=== PATIENT | male | born 1950 | race Caucasian/White ===

== ENCOUNTER 2016-05-14 01:42 | Inpatient (IN) | payer BC ==
[2016-05-14] VITALS (7 sets, daily range): BP systolic 123–143; BP diastolic 68–83; PULSE 75–92; TEMP 98.1–99.3
[~2016-05-14] VITALS: Ht 152.4 cm; Wt 69.5 kg
[2016-05-14] MEDS ORDERED: PREDNISONE 5MG5 MG PO (01:54)
[2016-05-14] MEDS ORDERED: NEORAL25 MG PO (01:55)
[2016-05-14] MEDS ORDERED: CALCITRIOL PO (01:55)
[2016-05-14 02:19] LABS: VENOUS BLOOD GAS BE -4.4 (-4-4); VENOUS BLOOD GAS SAO2 73.3 % (60-80)
[2016-05-14 02:20] LABS: VENOUS BLOOD GAS SITE VENIPUNCTURE
[2016-05-14 02:26] LABS: MEAN CELL VOLUME 101 fl (80.0-100.0); MEAN CORPUSCULAR HGB CONC 33 g/dl (33.0-37.0); MEAN PLATELET VOLUME 9.8 fl (7.4-10.4); PLATELET COUNT 163 K/mm3 (130-400); RED BLOOD COUNT 2.96 M/mm3 (4.20-5.60); REDCELL DISTRIBUTION WIDTH-CV 14.2 % (11.5-14.5)
[2016-05-14 02:30] LABS: ADD PATHOLOGY DIFF REVIEW NO; HEMOGLOBIN 9.8 g/dl (13.5-18.0); MEAN CORPUSCULAR HEMOGLOBIN 33 pg (27.0-31.0)
[2016-05-14 02:35] LABS: ADJUSTED CALCIUM 9.5 mg/dL (8.4-10.2); ALBUMIN 3.3 gm/dL (3.5-5.0); CALCIUM 8.9 mg/dL (8.4-10.2); CREATININE, serum 3.07 mg/dL (0.66-1.25); MAGNESIUM 1.6 mg/dL (1.6-2.3); PHOSPHOROUS 2.1 mg/dL (2.5-4.5); POTASSIUM 4.5 mmol/L (3.4-5.0); TOTAL PROTEIN 6.7 gm/dL (6.4-8.2)
[2016-05-14 02:40] LABS: BAND 57 % (0-10); BASOPHIL 1 % (0-2); EOSINOPHIL 1 % (0-4); NEUTROPHILS 23 % (42.0-75.2); PLATELET ESTIMATE NORMAL (NORMAL); TOTAL CELLS COUNTED 100
[2016-05-14 02:42] LABS: INFLUENZA B NEGATIVE
[2016-05-14 02:46] LABS: TROPONIN-I 0.019 ng/mL (0.000-0.034)
[2016-05-14] MEDS ORDERED: IMURAN 50MG TAB50 MG PO (03:13)
[2016-05-14] MEDS ORDERED: NORVASC 5MG5 MG/TAB PO (03:14)
[2016-05-14] MEDS ORDERED: COREG12.5 MG PO (03:14)
[2016-05-14] MEDS ORDERED: VITAMIN D1000 IU PO (03:15)
[2016-05-14] MEDS ORDERED: LIPITOR 40MG TA40 MG PO (03:15)
[2016-05-14] MEDS ORDERED: CYCLOSPORINE50 MG PO ×2 (04:35→04:37)
[2016-05-14 08:59] LABS: PH 5 (5-8); SQUAMOUS EPITHELIAL None Seen /hpf; URINE APPEARANCE Clear; URINE BACTERIA Rare /hpf; URINE BILIRUBIN Negative (NEGATIVE); URINE BLOOD 1+ (NEGATIVE); URINE COLOR Yellow; URINE GLUCOSE Negative (NEGATIVE); URINE KETONE Negative (NEGATIVE); URINE RBC None Seen /hpf; URINE UROBILINOGEN Negative (NEGATIVE); URINE WBC 0-2 /hpf
[2016-05-15 03:44] VITALS: BP 128/37; PULSE 88; TEMP 98.4
[2016-05-15 07:31] VITALS: BP 122/80; PULSE 112; TEMP 100.1
[2016-05-15 10:35] VITALS: BP 106/80; PULSE 85
[2016-05-15 11:10] VITALS: BP 125/67; PULSE 85; TEMP 97.5
[2016-05-15 16:22] VITALS: BP 122/76; PULSE 91; TEMP 98.7
[2016-05-15 20:35] VITALS: BP 122/84; PULSE 88; TEMP 99.1
[2016-05-16] VITALS (8 sets, daily range): BP systolic 118–141; BP diastolic 68–87; PULSE 78–106; TEMP 98–98.7
[2016-05-16 08:42] LABS: CREATININE, serum 3.1 mg/dL (0.66-1.25); MAGNESIUM 1.9 mg/dL (1.6-2.3); POTASSIUM 4.7 mmol/L (3.4-5.0)
[2016-05-16 13:01] LABS: INR 1.1 (0.8-3.0); PROTHROMBIN TIME 12.5 SECONDS (9.7-12.8)
[2016-05-17 00:39] VITALS: BP 110/82; PULSE 64; TEMP 97.9
[2016-05-17 07:41] LABS: CALCIUM 9.1 mg/dL (8.4-10.2); CREATININE, serum 3.12 mg/dL (0.66-1.25); POTASSIUM 4.5 mmol/L (3.4-5.0)
[2016-05-17 09:18] VITALS: BP 118/84; PULSE 100; TEMP 98.3
[2016-05-17 11:12] VITALS: BP 106/71; PULSE 79; TEMP 98
[2016-05-17 12:11] VITALS: BP 115/78; PULSE 104; TEMP 98
[2016-05-17 16:33] VITALS: BP 123/78; PULSE 74; TEMP 98.1
[2016-05-17 19:25] VITALS: BP 134/84; PULSE 74; TEMP 97.5
[2016-05-18] VITALS (7 sets, daily range): BP systolic 118–148; BP diastolic 74–87; PULSE 71–84; TEMP 97.5–98.4
[2016-05-18 07:38] LABS: INR 1.1 (0.8-3.0); PROTHROMBIN TIME 11.8 SECONDS (9.7-12.8)
[2016-05-18 07:48] LABS: CALCIUM 9.2 mg/dL (8.4-10.2); CREATININE, serum 3.17 mg/dL (0.66-1.25); MAGNESIUM 2.1 mg/dL (1.6-2.3); POTASSIUM 5.5 mmol/L (3.4-5.0)
[2016-05-19 03:46] VITALS: BP 115/72; PULSE 80; TEMP 97.6
[2016-05-19 07:27] LABS: INR 1.2 (0.8-3.0); PROTHROMBIN TIME 13.5 SECONDS (9.7-12.8)
[2016-05-19 07:35] LABS: CALCIUM 8.8 mg/dL (8.4-10.2); CREATININE, serum 3.05 mg/dL (0.66-1.25); MAGNESIUM 2.1 mg/dL (1.6-2.3); POTASSIUM 4.1 mmol/L (3.4-5.0)
[2016-05-19 07:51] VITALS: BP 144/79; PULSE 77; TEMP 98.2
[2016-05-19 12:10] VITALS: BP 125/78; PULSE 80; TEMP 98
[2016-05-19 16:33] VITALS: BP 147/78; PULSE 71; TEMP 97.7
[2016-05-19 20:36] VITALS: BP 131/75; PULSE 67; TEMP 98.1
[2016-05-19 23:19] VITALS: BP 122/70; PULSE 70; TEMP 97.7
[2016-05-20 04:31] VITALS: BP 150/79; PULSE 74; TEMP 98.7
[2016-05-20 07:57] VITALS: BP 154/89; PULSE 71
[2016-05-20 08:33] LABS: INR 1.8 (0.8-3.0); PROTHROMBIN TIME 20.1 SECONDS (9.7-12.8)
[2016-05-20 08:46] LABS: CALCIUM 8.4 mg/dL (8.4-10.2); CREATININE, serum 3.11 mg/dL (0.66-1.25); MAGNESIUM 2.2 mg/dL (1.6-2.3); POTASSIUM 4.5 mmol/L (3.4-5.0)
[2016-05-20 11:48] LABS: MEAN CELL VOLUME 103 fl (80.0-100.0); MEAN CORPUSCULAR HGB CONC 32 g/dl (33.0-37.0); MEAN PLATELET VOLUME 10.3 fl (7.4-10.4); PLATELET COUNT 272 K/mm3 (130-400); RED BLOOD COUNT 2.56 M/mm3 (4.20-5.60); REDCELL DISTRIBUTION WIDTH-CV 14.4 % (11.5-14.5); WHITE BLOOD COUNT 6.3 K/mm3 (4.8-10.8)
[2016-05-20 11:54] LABS: HEMATOCRIT 26.4 % (42.0-52.0); HEMOGLOBIN 8.5 g/dl (13.5-18.0); MEAN CORPUSCULAR HEMOGLOBIN 33 pg (27.0-31.0)
[2016-05-20 11:55] LABS: ADD PATHOLOGY DIFF REVIEW NO
[2016-05-20 12:04] VITALS: BP 129/72; PULSE 70
[2016-05-20 12:57] LABS: BAND 2 % (0-10); NEUTROPHILS 92 % (42.0-75.2); TOTAL CELLS COUNTED 100
[2016-05-20 12:59] LABS: PLATELET ESTIMATE NORMAL (NORMAL)
[2016-05-20 15:39] VITALS: BP 116/73; PULSE 74; TEMP 97.8
[2016-05-20 20:12] VITALS: BP 103/77; PULSE 72; TEMP 97.7
[2016-05-21] VITALS (899 sets, daily range): BP systolic 66–134; BP diastolic 46–84; PULSE 72–87; TEMP 97–99.1; O2SAT 73–100
[2016-05-21 07:48] LABS: MEAN CELL VOLUME 104 fl (80.0-100.0); MEAN CORPUSCULAR HGB CONC 32 g/dl (33.0-37.0); MEAN PLATELET VOLUME 10.3 fl (7.4-10.4); PLATELET COUNT 210 K/mm3 (130-400); RED BLOOD COUNT 1.63 M/mm3 (4.20-5.60); REDCELL DISTRIBUTION WIDTH-CV 14.6 % (11.5-14.5); WHITE BLOOD COUNT 7.4 K/mm3 (4.8-10.8)
[2016-05-21 07:53] LABS: PROTHROMBIN TIME 44.6 SECONDS (9.7-12.8)
[2016-05-21 08:06] LABS: MEAN CORPUSCULAR HEMOGLOBIN 33 pg (27.0-31.0)
[2016-05-21 08:09] LABS: CALCIUM 7.2 mg/dL (8.4-10.2); MAGNESIUM 2.2 mg/dL (1.6-2.3); POTASSIUM 5.4 mmol/L (3.4-5.0)
[2016-05-21 08:12] LABS: HEMOGLOBIN 5.4 g/dl (13.5-18.0)
[2016-05-21 08:13] LABS: ADD PATHOLOGY DIFF REVIEW NO
[2016-05-21 08:15] LABS: INR 3.9 (0.8-3.0)
[2016-05-21 09:13] LABS: CREATININE, serum 4.02 mg/dL (0.66-1.25)
[2016-05-21 11:11] LABS: BAND 18 % (0-10); NEUTROPHILS 70 % (42.0-75.2); PLATELET ESTIMATE NORMAL (NORMAL); TOTAL CELLS COUNTED 100
[2016-05-21 12:40] LABS: PH 5 (5-8); SQUAMOUS EPITHELIAL 0-2 /hpf; URINE APPEARANCE Hazy; URINE BACTERIA None Seen /hpf; URINE BILIRUBIN Negative (NEGATIVE); URINE BLOOD Negative (NEGATIVE); URINE COLOR Yellow; URINE GLUCOSE 1+ (NEGATIVE); URINE KETONE Negative (NEGATIVE); URINE RBC 0-2 /hpf; URINE UROBILINOGEN Negative (NEGATIVE); URINE WBC 0-2 /hpf
[2016-05-21 15:51] LABS: HEMOGLOBIN 7.3 g/dl (13.5-18.0)
[2016-05-22] VITALS (1364 sets, daily range): BP systolic 101–147; BP diastolic 56–91; PULSE 73–83; TEMP 97.7–99.4; O2SAT 81–99
[2016-05-22 02:50] LABS: HEMATOCRIT 22.7 % (42.0-52.0); HEMOGLOBIN 7.4 g/dl (13.5-18.0)
[2016-05-22 05:32] LABS: MEAN CORPUSCULAR HGB CONC 33 g/dl (33.0-37.0); MEAN PLATELET VOLUME 10.2 fl (7.4-10.4); PLATELET COUNT 162 K/mm3 (130-400); RED BLOOD COUNT 2.36 M/mm3 (4.20-5.60); REDCELL DISTRIBUTION WIDTH-CV 18.4 % (11.5-14.5); WHITE BLOOD COUNT 11.4 K/mm3 (4.8-10.8)
[2016-05-22 05:34] LABS: INR 1.3 (0.8-3.0); PROTHROMBIN TIME 14.9 SECONDS (9.7-12.8)
[2016-05-22 05:37] LABS: PARTIAL THROMBOPLASTIN TIME 30.8 SECONDS (26.0-37.0)
[2016-05-22 05:38] LABS: ADJUSTED CALCIUM 8.3 mg/dL (8.4-10.2); ALBUMIN 2.5 gm/dL (3.5-5.0); BILIRUBIN,TOTAL 0.5 mg/dL (0.0-1.0); CALCIUM 7.1 mg/dL (8.4-10.2); POTASSIUM 5.6 mmol/L (3.4-5.0)
[2016-05-22 05:45] LABS: ADD PATHOLOGY DIFF REVIEW NO; HEMATOCRIT 22.4 % (42.0-52.0); HEMOGLOBIN 7.3 g/dl (13.5-18.0); MEAN CELL VOLUME 95 fl (80.0-100.0); MEAN CORPUSCULAR HEMOGLOBIN 31 pg (27.0-31.0)
[2016-05-22 05:47] LABS: CREATININE, serum 4.88 mg/dL (0.66-1.25)
[2016-05-22 06:03] LABS: BAND 10 % (0-10); NEUTROPHILS 80 % (42.0-75.2); TOTAL CELLS COUNTED 100
[2016-05-22 19:54] LABS: HEMATOCRIT 25.9 % (42.0-52.0); HEMOGLOBIN 8.7 g/dl (13.5-18.0)
[2016-05-23] VITALS (1279 sets, daily range): BP systolic 113–146; BP diastolic 70–90; PULSE 71–89; TEMP 98–98.5; O2SAT 78–100
[2016-05-23 00:43] LABS: HEMATOCRIT 25.8 % (42.0-52.0); HEMOGLOBIN 8.7 g/dl (13.5-18.0)
[2016-05-23 03:55] LABS: MEAN CELL VOLUME 92 fl (80.0-100.0); MEAN CORPUSCULAR HGB CONC 34 g/dl (33.0-37.0); MEAN PLATELET VOLUME 10.6 fl (7.4-10.4); PLATELET COUNT 117 K/mm3 (130-400); REDCELL DISTRIBUTION WIDTH-CV 17.1 % (11.5-14.5); WHITE BLOOD COUNT 11.7 K/mm3 (4.8-10.8)
[2016-05-23 03:57] LABS: ADD PATHOLOGY DIFF REVIEW NO; HEMATOCRIT 23.8 % (42.0-52.0); MEAN CORPUSCULAR HEMOGLOBIN 31 pg (27.0-31.0)
[2016-05-23 03:59] LABS: INR 1.5 (0.8-3.0); PROTHROMBIN TIME 16.5 SECONDS (9.7-12.8)
[2016-05-23 04:01] LABS: PARTIAL THROMBOPLASTIN TIME 35.2 SECONDS (26.0-37.0); PH 5 (5-8); SQUAMOUS EPITHELIAL 0-2 /hpf; URINE APPEARANCE Cloudy; URINE BACTERIA Rare /hpf; URINE BILIRUBIN Negative (NEGATIVE); URINE BLOOD 3+ (NEGATIVE); URINE COLOR Yellow; URINE GLUCOSE Negative (NEGATIVE); URINE KETONE Negative (NEGATIVE); URINE UROBILINOGEN Negative (NEGATIVE)
[2016-05-23 04:01] LABS: ADJUSTED CALCIUM 8.1 mg/dL (8.4-10.2); ALANINE AMINOTRANSFERASE 90 U/L (21-72); ALBUMIN 2.2 gm/dL (3.5-5.0); ALKALINE PHOSPHATASE 41 U/L (50-136); ANION GAP 12 mmol/L (7-16); BILIRUBIN,TOTAL 0.8 mg/dL (0.0-1.0); CALCIUM 6.7 mg/dL (8.4-10.2); CARBON DIOXIDE 22 mmol/L (22-30); CHLORIDE 97 mmol/L (98-107); GLUCOSE 309 mg/dL (74-106); POTASSIUM 4.4 mmol/L (3.4-5.0); SODIUM 131 mmol/L (137-145); TOTAL PROTEIN 4.7 gm/dL (6.4-8.2)
[2016-05-23 04:02] LABS: URINE RBC 20-50 /hpf; URINE WBC 0-2 /hpf
[2016-05-23 04:19] LABS: BLOOD UREA NITROGEN 134 mg/dL (9-20); CREATININE, serum 4.99 mg/dL (0.66-1.25); TROPONIN-I < 0.012 ng/mL (0.000-0.034)
[2016-05-23 05:11] LABS: BAND 9 % (0-10); NEUTROPHILS 88 % (42.0-75.2); TOTAL CELLS COUNTED 100
[2016-05-23 12:52] LABS: HEMATOCRIT 24.8 % (42.0-52.0); HEMOGLOBIN 8.6 g/dl (13.5-18.0)
[2016-05-23 12:53] LABS: RETIC % 0.9 % (0.5-3.52)
[2016-05-23 19:04] LABS: HEMATOCRIT 24.8 % (42.0-52.0); HEMOGLOBIN 8.6 g/dl (13.5-18.0)
[2016-05-24] VITALS (672 sets, daily range): BP systolic 152–164; BP diastolic 84–99; PULSE 75–81; TEMP 97.9–98.4; O2SAT 57–100
[2016-05-24 06:54] LABS: HEMATOCRIT 23.7 % (42.0-52.0); HEMOGLOBIN 8.1 g/dl (13.5-18.0)
[2016-05-24 06:58] LABS: INR 1.7 (0.8-3.0); PROTHROMBIN TIME 19.2 SECONDS (9.7-12.8)
[2016-05-24 09:46] LABS: ALBUMIN 2.5 gm/dL (3.5-5.0); BILIRUBIN,TOTAL 0.8 mg/dL (0.0-1.0); CALCIUM 7.8 mg/dL (8.4-10.2); MAGNESIUM 2.2 mg/dL (1.6-2.3); POTASSIUM 4.1 mmol/L (3.4-5.0); TOTAL PROTEIN 5.1 gm/dL (6.4-8.2)
[2016-05-24 10:00] LABS: CREATININE, serum 5.28 mg/dL (0.66-1.25)
[2016-11-04] MEDS ORDERED: COREG 3.123.125 MG/T PO (13:02)
[2016-11-04] MEDS ORDERED: FOLIC ACID 40400 MCG PO (13:04)
[2016-11-04] MEDS ORDERED: NORVASC 5MG5 MG/TAB PO (13:04)
[2016-11-04] MEDS ORDERED: PROCRIT 1010 MU/VIAL IV (13:05)
[2016-11-04] MEDS ORDERED: B-121000 MCG PO (13:05)
== END 2016-05-24 16:08 | disposition short-term general hospital (02) | DRG 189 ==
LOC: COL.ER 01:42 → MEDICAL 02:59 → ICU 05-21 08:45
PROVIDERS: Anesthesiology Critical Care Medicine; Emergency Medicine; Family Medicine; Internal Medicine; Internal Medicine Cardiovascular Disease; Internal Medicine Nephrology; Nurse Practitioner Family
PROC: 5A2204Z Restoration of Cardiac Rhythm, Single (ICD-10-PCS; principal; 2016-05-16)
DX: J96.01 Acute respiratory failure with hypoxia (principal); R57.8 Other shock; N17.0 Acute kidney failure with tubular necrosis; Z94.0 Kidney transplant status; K56.7 Ileus, unspecified; E87.2 Acidosis; D62 Acute posthemorrhagic anemia; J20.9 Acute bronchitis, unspecified; I12.9 Hypertensive chronic kidney disease with stage 1 through stage 4 chronic kidney disease, or unspecified chronic kidney disease; N18.9 Chronic kidney disease, unspecified; D63.1 Anemia in chronic kidney disease; I48.0 Paroxysmal atrial fibrillation; J01.00 Acute maxillary sinusitis, unspecified; J01.10 Acute frontal sinusitis, unspecified; R58 Hemorrhage, not elsewhere classified
CPT/HCPCS: 99223-AI; 99232-AI; 99233-AI; 99239; C1751; J0456; J0696; J0881; J1170; J1450; J1644; J1650; J1940; J1956; J2405; J2704; J2765; J2920; J2930; J3010; J3430; J7030; J7040; J7050; J7070; J7500; J7512; J7515; P9016

== ENCOUNTER → 2016-07-17 | Outpatient (CLI) | payer BC ==
[~2016-07-17] MED LIST: B-121000 MCG PO; CALCITRIOL PO; CORDARONE200 MG/TAB PO; COREG 3.123.125 MG/T PO; COREG12.5 MG PO; CYCLOSPORINE50 MG PO; FOLIC ACID 40400 MCG PO; IMURAN 50MG TAB50 MG PO; KEPPRA250 MG PO; LIPITOR 40MG TA40 MG PO; NEORAL25 MG PO; NORVASC 5MG5 MG/TAB PO; PREDNISONE 5MG5 MG PO; PROCRIT 1010 MU/VIAL IV; VITAMIN D1000 IU PO; [UNRECOGNIZED DRUG - OTHER] PO
== END ==
LOC: COL.VAS 12:28
DX: N18.6 End stage renal disease (principal)
CPT/HCPCS: G0365

== ENCOUNTER 2016-07-30 08:38 | Emergency (ER) | payer BC ==
[~2016-07-30] VITALS: Ht 147.3 cm; Wt 56.4 kg
[~2016-07-30 08:38] MED LIST changes: -B-121000 MCG PO; -CORDARONE200 MG/TAB PO; -COREG 3.123.125 MG/T PO; -FOLIC ACID 40400 MCG PO; -KEPPRA250 MG PO; -PROCRIT 1010 MU/VIAL IV; -[UNRECOGNIZED DRUG - OTHER] PO
[2016-07-30 08:43] VITALS: BP 148/85; TEMP 98.1
[2016-07-30] MEDS ORDERED: [UNRECOGNIZED DRUG - OTHER] PO (08:47)
[2016-07-30] MEDS ORDERED: PREDNISONE 5MG5 MG PO (08:48)
[2016-07-30] MEDS ORDERED: CORDARONE200 MG/TAB PO (08:48)
[2016-07-30] MEDS ORDERED: KEPPRA250 MG PO (08:49)
[2016-07-30 09:33] LABS: BASO % 0.3 % (0.0-2.0); EOS # 0.1 (0.0-0.7); EOS % 1.3 % (0-4.0); GRAN # 3.5 (1.4-6.5); GRAN % 46.9 % (42.2-75.2); LYMPH # 2.9 (1.2-3.4); LYMPH % 38.9 % (20.0-51.0); MEAN CELL VOLUME 104 fl (80.0-100.0); MEAN CORPUSCULAR HGB CONC 32 g/dl (33.0-37.0); MEAN PLATELET VOLUME 9.4 fl (7.4-10.4); MONO # 0.9 (0.1-0.6); MONO % 12.2 % (1.7-9.3); PLATELET COUNT 164 K/mm3 (130-400); RED BLOOD COUNT 2.93 M/mm3 (4.20-5.60); REDCELL DISTRIBUTION WIDTH-CV 20.6 % (11.5-14.5); WHITE BLOOD COUNT 7.5 K/mm3 (4.8-10.8)
[2016-07-30 09:46] LABS: HEMATOCRIT 30.4 % (42.0-52.0); HEMOGLOBIN 9.8 g/dl (13.5-18.0); MEAN CORPUSCULAR HEMOGLOBIN 33 pg (27.0-31.0)
[2016-07-30 09:49] LABS: ADJUSTED CALCIUM 9.5 mg/dL (8.4-10.2); ALBUMIN 3.2 gm/dL (3.5-5.0); BILIRUBIN,TOTAL 0.9 mg/dL (0.0-1.0); C-REACTIVE PROTEIN 2.9 mg/dL (0.0-0.9); CALCIUM 8.9 mg/dL (8.4-10.2); POTASSIUM 3.9 mmol/L (3.4-5.0); TOTAL PROTEIN 6.4 gm/dL (6.4-8.2)
[2016-07-30 09:51] LABS: CREATININE, serum 6.43 mg/dL (0.66-1.25)
[2016-07-30 10:57] VITALS: PULSE 72
[2016-11-04] MEDS ORDERED: COREG 3.123.125 MG/T PO (13:02)
[2016-11-04] MEDS ORDERED: NORVASC 5MG5 MG/TAB PO (13:04)
[2016-11-04] MEDS ORDERED: FOLIC ACID 40400 MCG PO (13:04)
[2016-11-04] MEDS ORDERED: B-121000 MCG PO (13:05)
[2016-11-04] MEDS ORDERED: PROCRIT 1010 MU/VIAL IV (13:05)
== END 2016-07-30 10:58 | disposition home or self-care (01) ==
LOC: COL.ER 08:38
PROVIDERS: Emergency Medicine
DX: T82.868A Thrombosis due to vascular prosthetic devices, implants and grafts, initial encounter (principal); I82.C11 Acute embolism and thrombosis of right internal jugular vein; Z94.0 Kidney transplant status; Z99.2 Dependence on renal dialysis; N18.6 End stage renal disease
CPT/HCPCS: Q9967

== ENCOUNTER → 2016-11-08 | Outpatient (CLI) | payer BC ==
[~2016-11-08] VITALS: Ht 147.3 cm; Wt 56.8 kg
[~2016-11-08] MED LIST changes: +B-121000 MCG PO; +CORDARONE200 MG/TAB PO; +COREG 3.123.125 MG/T PO; +FOLIC ACID 40400 MCG PO; +KEPPRA250 MG PO; +PROCRIT 1010 MU/VIAL IV; +[UNRECOGNIZED DRUG - OTHER] PO
[2016-11-08 12:14] VITALS: BP 119/64; PULSE 68
== END ==
LOC: COL.RAD 11-05 13:30
DX: R19.09 Other intra-abdominal and pelvic swelling, mass and lump (principal); N26.1 Atrophy of kidney (terminal); M81.8 Other osteoporosis without current pathological fracture; K86.2 Cyst of pancreas; N32.89 Other specified disorders of bladder; K57.30 Diverticulosis of large intestine without perforation or abscess without bleeding; K42.9 Umbilical hernia without obstruction or gangrene; Z94.0 Kidney transplant status

== ENCOUNTER → 2016-12-16 | Outpatient (CLI) | payer BC ==
[~2016-12-16] VITALS: Ht 149.9 cm; Wt 56.8 kg
[~2016-12-16] MED LIST changes: +RENVELA800 MG PO; -VITAMIN D1000 IU PO; +VITAMIN D31000 I1 PO
[2016-12-16 08:16] VITALS: BP 153/86; PULSE 65
[2016-12-16 08:45] VITALS: BP 145/82; PULSE 57
[2016-12-16 09:18] VITALS: BP 128/68; PULSE 56
== END ==
LOC: COL.RAD 07:56
DX: Z45.2 Encounter for adjustment and management of vascular access device (principal)

== ENCOUNTER 2018-03-01 07:18 | Inpatient (IN) | payer BC, MEDICARE ==
[~2018-03-01] VITALS: Ht 149.9 cm; Wt 52.7 kg
[2018-03-01 07:56] LABS: BASO % 0.4 % (0.0-2.0); EOS # 0.1 (0.0-0.7); EOS % 1.4 % (0-4.0); GRAN # 4.3 (1.4-6.5); HEMOGLOBIN 10.9 g/dl (13.5-18.0); LYMPH # 1.6 (1.2-3.4); LYMPH % 22.8 % (20.0-51.0); MEAN CELL VOLUME 104 fl (80.0-100.0); MEAN CORPUSCULAR HEMOGLOBIN 33 pg (27.0-31.0); MEAN CORPUSCULAR HGB CONC 32 g/dl (33.0-37.0); MEAN PLATELET VOLUME 9.6 fl (7.4-10.4); MONO # 1.1 (0.1-0.6); PLATELET COUNT 157 K/mm3 (130-400); RED BLOOD COUNT 3.29 M/mm3 (4.20-5.60); REDCELL DISTRIBUTION WIDTH-CV 13.9 % (11.5-14.5)
[2018-03-01 07:57] LABS: INR 0.9 (0.8-3.0); PROTHROMBIN TIME 10.3 SECONDS (9.7-12.8)
[2018-03-01 08:00] LABS: HEMATOCRIT 34.1 % (42.0-52.0)
[2018-03-01 08:07] LABS: ALBUMIN 3.8 gm/dL (3.5-5.0); BILIRUBIN,TOTAL 0.6 mg/dL (0.0-1.0); CALCIUM 9.5 mg/dL (8.4-10.2); POTASSIUM 4.8 mmol/L (3.4-5.0)
[2018-03-01 08:20] LABS: CREATININE, serum 4.66 mg/dL (0.66-1.25)
[2018-03-01] MEDS ORDERED: PHOS LO PO (08:30)
[2018-03-01] MEDS ORDERED: LIPITOR 10MG10 MG PO (08:31)
[2018-03-01] MEDS ORDERED: LASIX 80MG TABL80 MG PO (08:33)
[2018-03-01 10:57] VITALS: BP 150/64; PULSE 63; TEMP 98.6
[2018-03-01 15:18] VITALS: BP 183/76; PULSE 71; TEMP 97.4
[2018-03-01 15:37] LABS: TSH w REFLEX 5.73 uIU/mL (0.465-4.680)
[2018-03-01 19:38] VITALS: BP 127/57; PULSE 60; TEMP 99.3
[2018-03-02 00:02] VITALS: BP 140/66; PULSE 66; TEMP 98.3
[2018-03-02 05:05] VITALS: BP 131/60; PULSE 64; TEMP 98.7
[2018-03-02 06:25] LABS: BASO % 0.6 % (0.0-2.0); EOS # 0.1 (0.0-0.7); EOS % 1.8 % (0-4.0); GRAN % 60.4 % (42.2-75.2); LYMPH # 1.6 (1.2-3.4); LYMPH % 23.8 % (20.0-51.0); MEAN CELL VOLUME 106 fl (80.0-100.0); MEAN CORPUSCULAR HGB CONC 31 g/dl (33.0-37.0); MONO # 0.9 (0.1-0.6); MONO % 13.1 % (1.7-9.3); PLATELET COUNT 143 K/mm3 (130-400); RED BLOOD COUNT 2.87 M/mm3 (4.20-5.60); REDCELL DISTRIBUTION WIDTH-CV 14.2 % (11.5-14.5)
[2018-03-02 06:30] LABS: ALBUMIN 3.1 gm/dL (3.5-5.0); HEMATOCRIT 30.4 % (42.0-52.0); HEMOGLOBIN 9.3 g/dl (13.5-18.0); MEAN CORPUSCULAR HEMOGLOBIN 32 pg (27.0-31.0); PHOSPHOROUS 3.7 mg/dL (2.5-4.5)
[2018-03-02 06:34] LABS: CREATININE, serum 6.66 mg/dL (0.66-1.25); POTASSIUM 5.9 mmol/L (3.4-5.0)
[2018-03-02 07:34] VITALS: BP 123/54; PULSE 64; TEMP 99
[2018-03-02 15:01] VITALS: BP 129/61; PULSE 66; TEMP 98.5
[2018-03-02 19:40] VITALS: BP 112/58; PULSE 57; TEMP 98.8
[2018-03-03] VITALS (14 sets, daily range): BP systolic 114–142; BP diastolic 51–77; PULSE 57–68; TEMP 98.4–99.5
[2018-03-03 07:08] LABS: BASO % 0.4 % (0.0-2.0); EOS # 0.1 (0.0-0.7); EOS % 2.4 % (0-4.0); GRAN # 3.4 (1.4-6.5); GRAN % 61.4 % (42.2-75.2); LYMPH # 1.3 (1.2-3.4); LYMPH % 22.9 % (20.0-51.0); MEAN CELL VOLUME 105 fl (80.0-100.0); MEAN CORPUSCULAR HGB CONC 31 g/dl (33.0-37.0); MEAN PLATELET VOLUME 9.9 fl (7.4-10.4); MONO # 0.7 (0.1-0.6); MONO % 12.7 % (1.7-9.3); PLATELET COUNT 149 K/mm3 (130-400); RED BLOOD COUNT 2.78 M/mm3 (4.20-5.60); REDCELL DISTRIBUTION WIDTH-CV 13.7 % (11.5-14.5)
[2018-03-03 07:10] LABS: HEMATOCRIT 29.3 % (42.0-52.0); HEMOGLOBIN 9.2 g/dl (13.5-18.0); MEAN CORPUSCULAR HEMOGLOBIN 33 pg (27.0-31.0)
[2018-03-03 07:20] LABS: ALBUMIN 3.2 gm/dL (3.5-5.0); CALCIUM 8.8 mg/dL (8.4-10.2); PHOSPHOROUS 5.1 mg/dL (2.5-4.5)
[2018-03-03 07:22] LABS: CREATININE, serum 4.98 mg/dL (0.66-1.25)
[2018-03-04 00:22] VITALS: BP 122/54; PULSE 59; TEMP 98.6
[2018-03-04 03:04] VITALS: BP 115/57; PULSE 58; TEMP 98.8
[2018-03-04 07:14] VITALS: BP 121/58; PULSE 56; TEMP 98.2
[2018-03-04 08:02] LABS: BASO % 0.2 % (0.0-2.0); EOS # 0.1 (0.0-0.7); EOS % 2.5 % (0-4.0); GRAN # 2.9 (1.4-6.5); GRAN % 55.6 % (42.2-75.2); LYMPH # 1.4 (1.2-3.4); LYMPH % 27.9 % (20.0-51.0); MEAN CELL VOLUME 103 fl (80.0-100.0); MEAN CORPUSCULAR HGB CONC 32 g/dl (33.0-37.0); MEAN PLATELET VOLUME 10.1 fl (7.4-10.4); MONO # 0.7 (0.1-0.6); MONO % 13.6 % (1.7-9.3); PLATELET COUNT 165 K/mm3 (130-400); RED BLOOD COUNT 2.64 M/mm3 (4.20-5.60); REDCELL DISTRIBUTION WIDTH-CV 13.8 % (11.5-14.5)
[2018-03-04 08:07] LABS: HEMATOCRIT 27.3 % (42.0-52.0); HEMOGLOBIN 8.8 g/dl (13.5-18.0); MEAN CORPUSCULAR HEMOGLOBIN 33 pg (27.0-31.0)
[2018-03-04 08:31] LABS: ALBUMIN 3.1 gm/dL (3.5-5.0); CALCIUM 8.8 mg/dL (8.4-10.2); PHOSPHOROUS 3.9 mg/dL (2.5-4.5); POTASSIUM 4.3 mmol/L (3.4-5.0)
[2018-03-04 08:32] LABS: CREATININE, serum 4.72 mg/dL (0.66-1.25)
[2018-03-04 11:06] VITALS: BP 106/54; PULSE 52; TEMP 98
[2018-03-04] MEDS ORDERED: FLOMAX 0.40.4 MG/CAP PO (11:37)
[2018-03-04] MEDS ORDERED: NEORAL100 MG PO (11:40)
[2018-03-04] MEDS ORDERED: NORCO 325 MG-51 TAB PO (12:32)
== END 2018-03-04 12:53 | disposition home or self-care (01) | DRG 604 ==
LOC: COL.ER 07:18 → MEDICAL 08:40
PROVIDERS: Emergency Medicine; Internal Medicine Nephrology
PROC: 0S9C3ZZ Drainage of Right Knee Joint, Percutaneous Approach (ICD-10-PCS; 2018-03-01)
PROC: 5A1D70Z Performance of Urinary Filtration, Intermittent, Less than 6 Hours Per Day (ICD-10-PCS; principal; 2018-03-02)
PROC: 5A1D70Z Performance of Urinary Filtration, Intermittent, Less than 6 Hours Per Day (ICD-10-PCS; 2018-03-03)
DX: S70.01XA Contusion of right hip, initial encounter (principal); N18.6 End stage renal disease; Q61.3 Polycystic kidney, unspecified; Z94.0 Kidney transplant status; M25.061 Hemarthrosis, right knee; S80.01XA Contusion of right knee, initial encounter; W18.30XA Fall on same level, unspecified, initial encounter; M25.461 Effusion, right knee; Z99.2 Dependence on renal dialysis; E87.5 Hyperkalemia; N13.9 Obstructive and reflux uropathy, unspecified; I48.91 Unspecified atrial fibrillation; Z79.01 Long term (current) use of anticoagulants
CPT/HCPCS: J1644; J2270; J2405; J7512; J7515

== ENCOUNTER 2018-10-11 10:48 | Emergency (ER) | payer BC, MEDICARE ==
[~2018-10-11] VITALS: Ht 147.3 cm; Wt 53.6 kg
[~2018-10-11 10:48] MED LIST changes: +FLOMAX 0.40.4 MG/CAP PO; +LASIX 80MG TABL80 MG PO; +LIPITOR 10MG10 MG PO; +NEORAL100 MG PO; +NORCO 325 MG-51 TAB PO; +PHOS LO PO
[2018-10-11 10:59] VITALS: TEMP 98
[2018-10-11 11:26] LABS: BASO # 0.1 (0.0-0.2); BASO % 0.5 % (0.0-2.0); EOS # 0.1 (0.0-0.7); EOS % 1.2 % (0-4.0); GRAN # 7.3 (1.4-6.5); GRAN % 79.1 % (42.2-75.2); LYMPH # 1.2 (1.2-3.4); LYMPH % 12.4 % (20.0-51.0); MEAN CELL VOLUME 103 fl (80.0-100.0); MEAN CORPUSCULAR HGB CONC 31 g/dl (33.0-37.0); MEAN PLATELET VOLUME 9.2 fl (7.4-10.4); MONO # 0.5 (0.1-0.6); MONO % 5.7 % (1.7-9.3); PLATELET COUNT 182 K/mm3 (130-400); RED BLOOD COUNT 2.93 M/mm3 (4.20-5.60); REDCELL DISTRIBUTION WIDTH-CV 15.2 % (11.5-14.5)
[2018-10-11 11:27] LABS: HEMATOCRIT 30.1 % (42.0-52.0); HEMOGLOBIN 9.4 g/dl (13.5-18.0); MEAN CORPUSCULAR HEMOGLOBIN 32 pg (27.0-31.0)
[2018-10-11] MEDS ORDERED: RENVELA800 MG PO (11:28)
[2018-10-11] MEDS ORDERED: NEORAL25 MG PO (11:32)
[2018-10-11] MEDS ORDERED: PROCRIT 1010 MU/VIAL SQ (11:36)
[2018-10-11 11:37] LABS: ALBUMIN 3.3 gm/dL (3.5-5.0); BILIRUBIN,TOTAL 0.6 mg/dL (0.0-1.0); CALCIUM 8.7 mg/dL (8.4-10.2); CREATININE, serum 5.57 (0.66-1.25); POTASSIUM 4.5 mmol/L (3.4-5.0); TOTAL PROTEIN 6.5 gm/dL (6.4-8.2)
[2018-10-11] MEDS ORDERED: CALCITRIOL PO (11:38)
[2018-10-11] MEDS ORDERED: NORCO 325 MG-51 TAB PO (12:12)
[2018-10-11 12:40] VITALS: BP 150/80; PULSE 60
== END 2018-10-11 13:11 | disposition home or self-care (01) ==
LOC: COL.ER 10:48
PROVIDERS: Family Medicine
DX: S70.01XA Contusion of right hip, initial encounter (principal); S41.111A Laceration without foreign body of right upper arm, initial encounter; E11.9 Type 2 diabetes mellitus without complications; Z23 Encounter for immunization; Z99.2 Dependence on renal dialysis; W01.0XXA Fall on same level from slipping, tripping and stumbling without subsequent striking against object, initial encounter

== ENCOUNTER 2018-10-16 15:06 | Inpatient (IN) | payer BC, MEDICARE ==
[~2018-10-16] VITALS: Ht 147.3 cm; Wt 50.6 kg
[~2018-10-16 15:06] MED LIST changes: +PROCRIT 1010 MU/VIAL SQ
[2018-10-16] MEDS ORDERED: ARANESP0.5 MG/ML IV (16:33)
[2018-10-16] MEDS ORDERED: ULTRAM 50MG TAB50 MG PO (16:37)
[2018-10-16 16:56] VITALS: BP 156/70; PULSE 64; TEMP 98.3
--- NOTE | 2018-10-16 20:01 | NUR ---
Pt arrived to floor on direct admit, initial assessments complete, orders received and entered into computer.
[2018-10-16 20:03] LABS: BASO % 0.4 % (0.0-2.0); EOS % 0.4 % (0-4.0); GRAN # 6.1 (1.4-6.5); GRAN % 76.4 % (42.2-75.2); MEAN CELL VOLUME 102 fl (80.0-100.0); MEAN CORPUSCULAR HGB CONC 32 g/dl (33.0-37.0); MEAN PLATELET VOLUME 9.8 fl (7.4-10.4); MONO # 0.8 (0.1-0.6); MONO % 10.2 % (1.7-9.3); PLATELET COUNT 210 K/mm3 (130-400); RED BLOOD COUNT 2.86 M/mm3 (4.20-5.60); REDCELL DISTRIBUTION WIDTH-CV 15.5 % (11.5-14.5)
[2018-10-16 20:04] LABS: HEMATOCRIT 29.3 % (42.0-52.0); HEMOGLOBIN 9.3 g/dl (13.5-18.0); MEAN CORPUSCULAR HEMOGLOBIN 33 pg (27.0-31.0)
[2018-10-16 20:05] LABS: INR 0.9 (0.8-3.0); PROTHROMBIN TIME 10.9 SECONDS (9.7-12.8)
[2018-10-16 20:18] LABS: ALBUMIN 3.4 gm/dL (3.5-5.0); BILIRUBIN,TOTAL 0.8 mg/dL (0.0-1.0); POTASSIUM 4.4 mmol/L (3.4-5.0); TOTAL PROTEIN 6.7 gm/dL (6.4-8.2); URIC ACID 3.8 mg/dL (3.5-8.5)
[2018-10-16 20:22] VITALS: BP 129/66; PULSE 72; TEMP 98.7
[2018-10-16 20:30] LABS: CREATININE, serum 5.57 (0.66-1.25)
--- NOTE | 2018-10-16 22:03 | NUR ---
Dr Olvera called for order for pt to have C-pap at night. Order received.
[2018-10-16 23:07] VITALS: BP 157/68; PULSE 67; TEMP 98.4
[2018-10-17] VITALS (18 sets, daily range): BP systolic 120–176; BP diastolic 66–87; PULSE 63–72; TEMP 98.4–99.2
--- NOTE | 2018-10-17 04:47 | NUR ---
Pt resting in bed without his c-pap on. States he couldn't get it to fit right after he had taken it off. States he is doing ok right now.
--- NOTE | 2018-10-17 08:00 | NUR ---
pt down for dialysis at this time via whelchair.
--- NOTE | 2018-10-17 12:23 | NUR ---
Pt back from dialysis at this time. Escorted via wheelchair by an mcnamara. Assessment completed and charted prior to dialysis. pt denies chest pain, dizziness, SOB, N/V. Pt on room air. Pt denies pain in general. Rt arm has wounds that are covered w/ dressing that is CDI. Will check later and rewrap dressing. No other needs at this time. will administer morning medications per MAR that were not given prior to dialysis.
--- NOTE | 2018-10-17 14:48 | NUR ---
Pt now c/o general pain, rating in 10/31. Administered tramadol PRN per MAY. Pt back from scheduled MRI. ECHO still pending, possibly done tomorrow or friday. No other needs at this time.
--- NOTE | 2018-10-17 19:30 | NUR ---
Report received from Lesly VILLEGAS. Pt resting in bed. No distress noted. Will continue to monitor.
--- NOTE | 2018-10-17 20:50 | NUR ---
Pt resting in bed. No distress noted. Pt denies pain at this time. HS meds given. Pt helped to stand at bedside to void in urinal. Urine is clear, paula. Repsirations even and unalbored. Lungs diminished. Abdomen soft, nontender. BS+. 2+ edema in BLE. Pulses equal. Pt A&O. No neuro deficits noted. AV fistula in RF. R arm with multiple abrasion covered with guaze dressings. Pt denies needs. Will continue to monitor.
--- NOTE | 2018-10-17 21:43 | NUR ---
Dr. Olvera called to have nurse take of patients bandages on his R arm to allow wounds to dry out. Dr. Olvera stated that this could be done tonight or in the AM depending on patient preference.
--- NOTE | 2018-10-17 21:50 | NUR ---
Pt stated that he wanted the dressing left on tonight, so the sheets don't run on the wounds. Will removed in the AM.
[2018-10-18 04:38] VITALS: BP 140/67; PULSE 65; TEMP 98.6
--- NOTE | 2018-10-18 06:30 | NUR ---
Pt resting in bed this AM. R arm dressings removed per MD order. Guaze moistened with Irrigation Saline in areas that were stuck, for comfort. Left open to air. Multiple lacerations and abrasions noted to R wrist/hand and R forearm. Wounds are held closed by steristrips. Steristrips left in place. Wounds on hand/wrist are foul smelling with purulent drainage. Pt denies pain.
--- NOTE | 2018-10-18 07:00 | NUR ---
Report given to Lesly VILLEGAS. Pt denies needs.
[2018-10-18 07:01] LABS: BASO % 0.3 % (0.0-2.0); EOS # 0.1 (0.0-0.7); EOS % 0.9 % (0-4.0); GRAN % 63.7 % (42.2-75.2); LYMPH # 1.7 (1.2-3.4); LYMPH % 21.6 % (20.0-51.0); MEAN CELL VOLUME 102 fl (80.0-100.0); MEAN CORPUSCULAR HGB CONC 31 g/dl (33.0-37.0); MEAN PLATELET VOLUME 9.7 fl (7.4-10.4); MONO % 12.6 % (1.7-9.3); PLATELET COUNT 214 K/mm3 (130-400); RED BLOOD COUNT 2.62 M/mm3 (4.20-5.60); REDCELL DISTRIBUTION WIDTH-CV 15.5 % (11.5-14.5)
[2018-10-18 07:11] LABS: HEMATOCRIT 26.6 % (42.0-52.0); HEMOGLOBIN 8.3 g/dl (13.5-18.0); MEAN CORPUSCULAR HEMOGLOBIN 32 pg (27.0-31.0)
[2018-10-18 07:12] VITALS: BP 135/66; PULSE 62; TEMP 98.4
[2018-10-18 07:16] LABS: CALCIUM 8.7 mg/dL (8.4-10.2); PHOSPHOROUS 3.8 mg/dL (2.5-4.5); POTASSIUM 4.3 mmol/L (3.4-5.0)
[2018-10-18 07:20] LABS: CREATININE, serum 4.84 (0.66-1.25)
--- NOTE | 2018-10-18 08:32 | NUR ---
Pt assessment complete and charted. Pt sitting in bed eating breakfast. Morning medications administered per MAY. Uneventful night per board attendant. Pt states he is doing well, denies dizziness, SOB, chest pain, N/V. C/O pain on right forearm and elbow. Multiple abrasions and open wounds on right forearm/hand/elbow. Bruising noted. Steri strips in place, some drainage noted. Per order, bandages were removed and needs to "air dry". Mehdi under arm for drainage. Pt denied pain medication, rating pain at 4/10. States rt hip feels ok just laying there but hurts more when he gets up to walk. PT/OT to work w/ patient today. Pt on room air. Rt arm fistula. No other needs at this time. Call light within reach.
[2018-10-18 11:01] VITALS: BP 107/55; PULSE 58; TEMP 98.6
--- NOTE | 2018-10-18 11:48 | NUR ---
The patient is to discharge to [facility] today, 10/18. Transportation is set up between [id number]. IESHA presented and explain the IM form. The pt understood and signed the form. IESHA informed the pt and pt's nurse of discharge time and all were in agreeance. IESHA to fax discharge orders to John at [facility]. There are no additional needs at this time.
[2018-10-18 12:01] LABS: TSH w REFLEX 3.92 uIU/mL (0.465-4.680)
--- NOTE | 2018-10-18 12:01 | NUR ---
IESHA met with the patient to discuss a discharge plan. The pt lives two miles outside of [place] with his mother. The pt has a walker that he uses occasionally and pt reports independence with ADLs. The pt's PCP is Dr. Johnston and pt receives his medications from [facility] with no difficulties. The pt does have advanced directives in the EMR. The pt plans to return home upon discharge. There are no additional needs at this time.
[2018-10-18 16:23] VITALS: BP 122/59; PULSE 59; TEMP 98.2
--- NOTE | 2018-10-18 18:03 | NUR ---
Pt has had uneventful day. No BM today, unable to obtain stool sample. Pt has rated pain 3-4/10, just received pain medication PRN per MAR. No other needs at this time. Call light within reach.
--- NOTE | 2018-10-18 19:00 | NUR ---
Report received from Lesly VILLEGAS.
--- NOTE | 2018-10-18 19:07 | NUR ---
Orth consult completed. Pt can be WBAT with walker. Follow up visit with ortho in about 6 weeks. No other needs at this time. Report given to BAKARI Ogden to resume cares.
[2018-10-18 19:24] VITALS: BP 113/55; PULSE 63; TEMP 98.5
--- NOTE | 2018-10-18 20:23 | NUR ---
Pt resting in bed. No distress noted. Pt denies pain. Respirations even and unlabored. Lungs clear. Abdomen soft, nontender. BS+. Pt helped up to side of bed to void in urinal. Urinary output is clear, yellow. Edema to BLE. RLE 1+ edema, LLE 2+ edema. RF AV fistula. Multiple lacerations and abrasions to R hand and elbow- secured with steristrips. Open to air. R hand lacerations have foul odor and yellow drainage. Pt states he is going to dialysis in the AM. No other needs noted. Will continue to monitor.
--- NOTE | 2018-10-18 21:46 | NUR ---
Pt called to report that R elbow wounds were causing him pain when they rub against the sheet. Pt requested the wounds be covered with guaze while sleeping.
[2018-10-18 23:36] VITALS: BP 130/61; PULSE 65; TEMP 98.8
[2018-10-19 03:20] VITALS: BP 130/64; PULSE 64; TEMP 98.9
--- NOTE | 2018-10-19 05:47 | NUR ---
Pt slept throughout the night without distress. Pt was up x2 to void in urinal. Pt has had minimal complaints. VSS. R elbow wound covered with guaze per pt request for comfort. Pt reports discomfort in the R arm.
--- NOTE | 2018-10-19 06:58 | NUR ---
Report given to Starla VILLEGAS. Pt resting. No distress noted. Pt denies needs.
[2018-10-19 07:09] LABS: MEAN CELL VOLUME 102 fl (80.0-100.0); MEAN CORPUSCULAR HGB CONC 31 g/dl (33.0-37.0); MEAN PLATELET VOLUME 9.6 fl (7.4-10.4); PLATELET COUNT 235 K/mm3 (130-400); RED BLOOD COUNT 2.63 M/mm3 (4.20-5.60); REDCELL DISTRIBUTION WIDTH-CV 15.4 % (11.5-14.5)
[2018-10-19 07:19] LABS: ALBUMIN 2.8 gm/dL (3.5-5.0); CALCIUM 8.6 mg/dL (8.4-10.2); CREATININE, serum 7.1 (0.66-1.25); PHOSPHOROUS 4.2 mg/dL (2.5-4.5); POTASSIUM 4.1 mmol/L (3.4-5.0)
[2018-10-19 07:21] VITALS: BP 139/67; PULSE 71; TEMP 98.8
[2018-10-19 07:24] LABS: HEMATOCRIT 26.8 % (42.0-52.0); HEMOGLOBIN 8.3 g/dl (13.5-18.0); MEAN CORPUSCULAR HEMOGLOBIN 32 pg (27.0-31.0)
[2018-10-19 09:09] LABS: BAND 2 % (0-10); EOSINOPHIL 3 % (0-4); LYMPHOCYTE 20 % (20.0-51.0); NEUTROPHILS 68 % (42.0-75.2); PLATELET ESTIMATE NORMAL (NORMAL)
[2018-10-19 09:10] LABS: ANISOCYTOSIS 1+; HYPOCHROMIA 2+
--- NOTE | 2018-10-19 09:50 | NUR ---
Patient referred for a Complete PFT by Dr. Olvera with the diagnosis of Amiodarone initiation. However, when I went up to the room to do PFT patient was short of breath and stakes he is very weak. Patient is expected to do dialysis later today and is fluid overload at this time. Will wait until patient is more medically stable.
[2018-10-19 11:20] VITALS: BP 141/60; PULSE 65; TEMP 98.6
--- NOTE | 2018-10-19 11:37 | NUR ---
Completed assessment and medication administration; PT tolerated all cares well; PT pending dialysis this afternoon; ECHO completed pending reading from Dr. Tolbert; PFT changed to 10/20/2018; Dr. Olvera updated on all above; RFA fistula doing well; ALEC abrasions covered in gauze pending wound care assessment per Dr. Olvera. No further acute changes at time of assessment. Will continue to assessment and monitor. YAQUELINA
--- NOTE | 2018-10-19 12:00 | NUR ---
PT off floor for dialysis upon request; PT administered pain medication prior to exit from floor. CDA
--- NOTE | 2018-10-19 15:55 | NUR ---
PT back on floor from dialysis; 2liters removed during dialysis; PT stable upon arrival. CDA
[2018-10-19 16:31] VITALS: BP 147/67; PULSE 67; TEMP 98.4
--- NOTE | 2018-10-19 17:42 | NUR ---
Wound care consult placed and notified wound care via voice message on 10/19/18 at approximately 1740; Wound care ordered per Dr. Olvera. YAQUELINA
--- NOTE | 2018-10-19 18:59 | NUR ---
Report given to BAKARI Soria; No significant changes or concerns at time of shift change; Rounded to room with oncoming staff. CDA
[2018-10-19 19:24] VITALS: BP 116/61; PULSE 70; TEMP 98.4
[2018-10-19 23:45] VITALS: BP 129/59; PULSE 66; TEMP 98.3
[2018-10-20 04:51] VITALS: BP 124/63; PULSE 78; TEMP 98.1
[2018-10-20 06:12] LABS: BASO % 0.3 % (0.0-2.0); EOS # 0.2 (0.0-0.7); EOS % 1.6 % (0-4.0); GRAN # 7.1 (1.4-6.5); GRAN % 68.1 % (42.2-75.2); LYMPH # 1.7 (1.2-3.4); LYMPH % 16.3 % (20.0-51.0); MEAN CELL VOLUME 104 fl (80.0-100.0); MEAN CORPUSCULAR HGB CONC 31 g/dl (33.0-37.0); MEAN PLATELET VOLUME 9.4 fl (7.4-10.4); MONO # 1.3 (0.1-0.6); MONO % 12.6 % (1.7-9.3); PLATELET COUNT 270 K/mm3 (130-400); RED BLOOD COUNT 2.62 M/mm3 (4.20-5.60); REDCELL DISTRIBUTION WIDTH-CV 15.5 % (11.5-14.5)
[2018-10-20 06:25] LABS: HEMATOCRIT 27.3 % (42.0-52.0); HEMOGLOBIN 8.5 g/dl (13.5-18.0); MEAN CORPUSCULAR HEMOGLOBIN 32 pg (27.0-31.0)
[2018-10-20 06:28] LABS: ALBUMIN 2.9 gm/dL (3.5-5.0); CALCIUM 8.6 mg/dL (8.4-10.2); PHOSPHOROUS 4.5 mg/dL (2.5-4.5); POTASSIUM 4.4 mmol/L (3.4-5.0)
[2018-10-20 06:29] LABS: CREATININE, serum 4.94 (0.66-1.25)
--- NOTE | 2018-10-20 07:10 | NUR ---
awake resting in bed, bedside shift report received from BAKARI Soria
[2018-10-20 07:29] VITALS: BP 135/62; PULSE 70; TEMP 99.1
--- NOTE | 2018-10-20 08:30 | NUR ---
to cardiopulmonary per WC for PFT test to be completed
--- NOTE | 2018-10-20 10:15 | NUR ---
resting in bed, has been up and ambulated [facility] physical therapy, now c/o some pain to right hip but especially to right elbow, full assessment completed, see interventions for further info, medicated with trmadol 50mg po, Nikole LONG from wound care in to see patient, dressing to right hand and elbow removed and steri strips removed by ETHAN, hand has skin tear and appears moist, has drying skin tear to right forearm by elbow but posterior side of elbow is bright red and sore to touch, no drainage noted, will assist him with taking a shower to clean the wounds, will let him rest for a while and let pain pill help with pain first, denies other needs
--- NOTE | 2018-10-20 11:20 | NUR ---
Dr Olvera was in to see patient, patient states pain is better after having had ultram, assisted up and into shower
[2018-10-20 11:30] VITALS: BP 119/62; PULSE 74; TEMP 98.7
--- NOTE | 2018-10-20 11:55 | NUR ---
tolerated shower well an d now back in bed, skin tear to right side as earlier assessed
--- NOTE | 2018-10-20 12:30 | NUR ---
resting in bed, Dr Oliver was in to see patient,
--- NOTE | 2018-10-20 14:00 | NUR ---
resting in bed, states orthopaedic PA was in to see him, denies needs at this time
[2018-10-20 15:26] VITALS: BP 136/66; PULSE 70; TEMP 98.9
--- NOTE | 2018-10-20 15:31 | NUR ---
hand hand and forearm dressed with xeroform and gauze and wrapped to be held in place, SCDS on, denies otehr needs
--- NOTE | 2018-10-20 17:24 | NUR ---
awake now and states his pain is still doing OK, will order supper soon
--- NOTE | 2018-10-20 18:19 | NUR ---
sitting up in bed eawting supper and visiting with family
--- NOTE | 2018-10-20 18:48 | NUR ---
bedside shift report given to BAKARI Soria
[2018-10-20 19:18] VITALS: BP 103/50; PULSE 64; TEMP 98.5
[2018-10-20 22:48] LABS: KAPPA FREE LIGHT CHAIN-SERUM 20.2 mg/dL (()); LAMDA FREE LIGHT CHAIN SERUM 12.7 mg/dL (())
[2018-10-20 23:17] VITALS: BP 147/66; PULSE 62; TEMP 97.8
[2018-10-21 03:13] VITALS: BP 150/55; PULSE 63; TEMP 98.5
[2018-10-21 07:12] VITALS: BP 125/60; PULSE 63; TEMP 98
[2018-10-21 08:14] LABS: BASO % 0.3 % (0.0-2.0); EOS # 0.1 (0.0-0.7); EOS % 1.2 % (0-4.0); GRAN # 6.9 (1.4-6.5); GRAN % 71.8 % (42.2-75.2); LYMPH # 1.5 (1.2-3.4); MEAN CELL VOLUME 104 fl (80.0-100.0); MEAN CORPUSCULAR HGB CONC 31 g/dl (33.0-37.0); MEAN PLATELET VOLUME 9.4 fl (7.4-10.4); MONO # 1.1 (0.1-0.6); MONO % 10.9 % (1.7-9.3); PLATELET COUNT 310 K/mm3 (130-400); RED BLOOD COUNT 2.56 M/mm3 (4.20-5.60); REDCELL DISTRIBUTION WIDTH-CV 15.4 % (11.5-14.5)
[2018-10-21 08:25] LABS: ALBUMIN 2.9 gm/dL (3.5-5.0); CALCIUM 8.7 mg/dL (8.4-10.2); POTASSIUM 4.7 mmol/L (3.4-5.0)
[2018-10-21 08:30] LABS: CREATININE, serum 7.46 (0.66-1.25)
[2018-10-21 08:33] LABS: HEMATOCRIT 26.7 % (42.0-52.0); HEMOGLOBIN 8.2 g/dl (13.5-18.0); MEAN CORPUSCULAR HEMOGLOBIN 32 pg (27.0-31.0)
--- NOTE | 2018-10-21 11:50 | NUR ---
IESHA spoke with BAKARI Chino who reports patient will be here a few more days and then the plan is to go home. IESHA will continue to follow.
[2018-10-21 12:39] VITALS: BP 145/89; PULSE 72; TEMP 97.9
[2018-10-21 16:38] VITALS: BP 158/77; PULSE 72; TEMP 98.7
--- NOTE | 2018-10-21 18:14 | NUR ---
Pt has been resting since returning from dialysis this morning, no C/O pain while on the floor, Pt eating well, VS have remained stable.
[2018-10-21 20:39] VITALS: BP 111/59; PULSE 70; TEMP 97.8
[2018-10-21 23:51] VITALS: BP 111/61; PULSE 65; TEMP 99.2
[2018-10-22 03:23] VITALS: BP 132/70; PULSE 62; TEMP 98.2
--- NOTE | 2018-10-22 07:11 | NUR ---
Report received from BAKARI Soria.
[2018-10-22 08:00] VITALS: BP 130/77; PULSE 69; TEMP 98.3
[2018-10-22 08:07] LABS: BASO % 0.3 % (0.0-2.0); EOS # 0.1 (0.0-0.7); EOS % 1.1 % (0-4.0); GRAN # 6.2 (1.4-6.5); GRAN % 70.6 % (42.2-75.2); LYMPH # 1.4 (1.2-3.4); LYMPH % 16.3 % (20.0-51.0); MEAN CELL VOLUME 104 fl (80.0-100.0); MEAN CORPUSCULAR HGB CONC 31 g/dl (33.0-37.0); MEAN PLATELET VOLUME 9.6 fl (7.4-10.4); MONO % 10.9 % (1.7-9.3); PLATELET COUNT 323 K/mm3 (130-400); RED BLOOD COUNT 2.59 M/mm3 (4.20-5.60); REDCELL DISTRIBUTION WIDTH-CV 15.4 % (11.5-14.5)
[2018-10-22 08:09] LABS: HEMATOCRIT 26.8 % (42.0-52.0); HEMOGLOBIN 8.3 g/dl (13.5-18.0); MEAN CORPUSCULAR HEMOGLOBIN 32 pg (27.0-31.0)
[2018-10-22 08:27] LABS: CALCIUM 8.5 mg/dL (8.4-10.2); PHOSPHOROUS 4.6 mg/dL (2.5-4.5); POTASSIUM 4.6 mmol/L (3.4-5.0)
[2018-10-22 08:48] LABS: CREATININE, serum 5.53 (0.66-1.25)
--- NOTE | 2018-10-22 08:50 | NUR ---
Pt awake and alert upon entry, sitting in bed eating breakfast, has C/O pain in left elbow, medications given for relief, shift assessments complete, left Pt call light in reach, bed in lowest position.
--- NOTE | 2018-10-22 11:18 | NUR ---
First visit from the emergency veterinarian. No needs right now.
[2018-10-22 12:37] VITALS: BP 121/68; PULSE 71; TEMP 98.2
--- NOTE | 2018-10-22 15:20 | NUR ---
Occupational therapy is recommending home health. IESHA presented a list from Medicare.gov of agencies that provide home health services in the [facility]. The pt was not interested in home health at this time. IESHA will continue to follow.
--- NOTE | 2018-10-22 18:28 | NUR ---
Pt has been up in the recliner for portions of the day, he has been walking in the hallway with the assistance of PT using a walker, has C/O pain overall with worst area related to his right elbow, VS have remained stable during the day.
[2018-10-22 19:52] VITALS: BP 126/75; PULSE 61; TEMP 98.9
--- NOTE | 2018-10-22 20:30 | NUR ---
Initial shift assessment done- states having generalized pain, hip, right elbow 09/30- will give Tramadol as ordered, Right hand,Right elbow dressing dry and intact.
[2018-10-23 00:09] VITALS: BP 144/74; PULSE 65; TEMP 98.2
[2018-10-23 03:57] VITALS: BP 122/68; PULSE 63; TEMP 98
--- NOTE | 2018-10-23 06:21 | NUR ---
Quiet night- no requests, Tramadol just given x1 at beginning of shift for pain.
[2018-10-23 07:37] LABS: BASO % 0.4 % (0.0-2.0); EOS # 0.1 (0.0-0.7); EOS % 1.6 % (0-4.0); GRAN # 5.8 (1.4-6.5); GRAN % 68.6 % (42.2-75.2); LYMPH # 1.6 (1.2-3.4); LYMPH % 18.3 % (20.0-51.0); MEAN CELL VOLUME 103 fl (80.0-100.0); MEAN CORPUSCULAR HGB CONC 31 g/dl (33.0-37.0); MEAN PLATELET VOLUME 9.4 fl (7.4-10.4); MONO # 0.9 (0.1-0.6); MONO % 10.2 % (1.7-9.3); PLATELET COUNT 324 K/mm3 (130-400)
[2018-10-23 07:43] LABS: ALBUMIN 2.9 gm/dL (3.5-5.0); CALCIUM 8.7 mg/dL (8.4-10.2); CREATININE, serum 7.34 (0.66-1.25); HEMATOCRIT 26.8 % (42.0-52.0); HEMOGLOBIN 8.4 g/dl (13.5-18.0); MEAN CORPUSCULAR HEMOGLOBIN 32 pg (27.0-31.0); PHOSPHOROUS 5.2 mg/dL (2.5-4.5); POTASSIUM 4.7 mmol/L (3.4-5.0)
[2018-10-23] MEDS ORDERED: COREG 3.123.125 MG/T PO (10:43)
[2018-10-23] MEDS ORDERED: CEPHALEXIN500 M1 PO (10:46)
--- NOTE | 2018-10-23 11:23 | NUR ---
SW met with the patient and presented the IM form. The pt understood and signed the form. A copy was provided to the pt and the original was placed in the chart. There are no additonal needs at this time.
--- NOTE | 2018-10-23 11:41 | NUR ---
IESHA met with patient who would like [facility] for PT/OT/SN. SW faxed referral and left message with Niyah.
--- NOTE | 2018-10-23 14:10 | NUR ---
The pt is to discharge today, 10/23 home with home health services. [facility] cannot provide service in [place] for the pt. IESHA met with the pt and he chose [facility]. IESHA faxed referral and Zack states they can accept the pt for services. IESHA faxed discharge orders. There are no additional needs at this time.
--- NOTE | 2018-10-23 14:16 | NUR ---
Pt discharged to home with home health services, escorted to entrance by ASSISTANT PRODUCT MANAGER, left via private auto.
== END 2018-10-23 14:00 | disposition home health service (06) | DRG 602 ==
LOC: MEDICAL 15:06
PROVIDERS: ADMIT Internal Medicine Nephrology
PROC: 5A1D70Z Performance of Urinary Filtration, Intermittent, Less than 6 Hours Per Day (ICD-10-PCS; principal; 2018-10-16)
DX: L03.113 Cellulitis of right upper limb (principal); S72.114A Nondisplaced fracture of greater trochanter of right femur, initial encounter for closed fracture; N18.6 End stage renal disease; S32.599A Other specified fracture of unspecified pubis, initial encounter for closed fracture; Z94.0 Kidney transplant status; E46 Unspecified protein-calorie malnutrition; I12.0 Hypertensive chronic kidney disease with stage 5 chronic kidney disease or end stage renal disease; M19.90 Unspecified osteoarthritis, unspecified site; S50.811A Abrasion of right forearm, initial encounter; W19.XXXA Unspecified fall, initial encounter; M25.551 Pain in right hip; E83.39 Other disorders of phosphorus metabolism; I48.2 Chronic atrial fibrillation; D63.1 Anemia in chronic kidney disease; Z99.2 Dependence on renal dialysis; Z91.81 History of falling; Z68.25 Body mass index [BMI] 25.0-25.9, adult
CPT/HCPCS: J0690; J0882; J1644; J7030; J7512; J7515

== ENCOUNTER → 2019-01-14 | Outpatient (CLI) | payer BC, MEDICARE ==
[~2019-01-14] VITALS: Ht 147.3 cm; Wt 49.3 kg
[~2019-01-14] MED LIST changes: +ARANESP0.5 MG/ML IV; +CEPHALEXIN500 M1 PO; +ULTRAM 50MG TAB50 MG PO
[2019-01-14 16:00] VITALS: BP 139/92; PULSE 70; TEMP 98.2
== END ==
LOC: EUO 15:00
DX: M81.0 Age-related osteoporosis without current pathological fracture (principal)
CPT/HCPCS: J0897

== ENCOUNTER 2021-10-23 19:38 | Inpatient (IN) | payer MEDICARE, BC ==
[~2021-10-23] VITALS: Ht 147.3 cm; Wt 52.8 kg
[2021-10-23 20:28] LABS: BASO # 0.1 K/mm3 (0.0-0.2); BASO % 0.3 % (0.0-2.0); EOS # 0.1 K/mm3 (0.0-0.7); EOS % 0.6 % (0.0-4.0); GRAN # 12.5 K/mm3 (1.4-6.5); GRAN % 85.7 % (42.2-75.2); LYMPH # 0.8 K/mm3 (1.2-3.4); LYMPH % 5.7 % (20.0-51.0); MEAN CELL VOLUME 112 fl (80.0-100.0); MEAN CORPUSCULAR HGB CONC 32 g/dl (33.0-37.0); MEAN PLATELET VOLUME 9.3 fl (7.4-10.4); PLATELET COUNT 261 K/mm3 (130-400); RED BLOOD COUNT 2.73 M/mm3 (4.20-5.60); REDCELL DISTRIBUTION WIDTH-CV 14.6 % (11.5-14.5)
[2021-10-23 20:31] LABS: HEMATOCRIT 30.6 % (42.0-52.0); HEMOGLOBIN 9.8 g/dl (13.5-18.0); MEAN CORPUSCULAR HEMOGLOBIN 36 pg (27-31)
[2021-10-23 20:39] LABS: CALCIUM 9.1 mg/dL (8.4-10.2); CREATININE, serum 4.71 mg/dL (0.72-1.25); POTASSIUM 4.4 mmol/L (3.5-4.5)
[2021-10-23] MEDS ORDERED: FOLIC ACID 40400 MCG PO (22:14)
[2021-10-23] MEDS ORDERED: NORVASC 5MG5 MG/TAB PO (22:15)
[2021-10-23] MEDS ORDERED: COREG12.5 MG PO (22:16)
[2021-10-23 22:51] LABS: COLLECTION METHOD CLEAN CATCH
[2021-10-23 23:02] LABS: MUCOUS Present (NOT PRESENT); PH 5 (5-8); SQUAMOUS EPITHELIAL 0-2 /hpf (0-10); URINE APPEARANCE Hazy (CLEAR/HAZY); URINE BACTERIA None Seen /hpf (NONE SEEN); URINE BLOOD Negative (NEGATIVE); URINE COLOR Yellow (YELLOW); URINE GLUCOSE Negative (NEGATIVE); URINE KETONE Negative (NEGATIVE); URINE NITRATE Negative (NEGATIVE); URINE PROTEIN(semi-quant) 2+ (NEGATIVE); URINE RBC 0-2 /hpf (0-2); URINE UROBILINOGEN Negative (NEGATIVE)
[2021-10-24 09:23] LABS: MEAN CELL VOLUME 112 fl (80.0-100.0); MEAN CORPUSCULAR HGB CONC 32 g/dl (33.0-37.0); MEAN PLATELET VOLUME 9.1 fl (7.4-10.4); PLATELET COUNT 221 K/mm3 (130-400); RED BLOOD COUNT 2.72 M/mm3 (4.20-5.60); REDCELL DISTRIBUTION WIDTH-CV 14.7 % (11.5-14.5)
[2021-10-24 09:24] LABS: HEMATOCRIT 30.4 % (42.0-52.0); HEMOGLOBIN 9.6 g/dl (13.5-18.0); MEAN CORPUSCULAR HEMOGLOBIN 35 pg (27-31)
[2021-10-24 09:35] LABS: BAND 10 % (0-10); EOSINOPHIL 1 % (0-4); LYMPHOCYTE 1 % (20.0-51.0); NEUTROPHILS 83 % (42.0-75.2)
[2021-10-24 09:36] LABS: PLATELET ESTIMATE NORMAL (NORMAL)
[2021-10-24 09:48] LABS: ALBUMIN 2.7 gm/dL (3.4-4.8); CALCIUM 8.7 mg/dL (8.4-10.2); CREATININE, serum 5.45 mg/dL (0.72-1.25); PHOSPHOROUS 3.5 mg/dL (2.3-4.7); POTASSIUM 4.8 mmol/L (3.5-4.5)
--- NOTE | 2021-10-24 13:49 | NUR ---
Labeling Strategist met with patient and his niece/DPOA-HC, Lisa (ph#[phone]) to discuss discharge planning. Patient is seen in ED, however will soon be transferred up to the medical floor. Patient lives in [place] with his mother, Lisa. Juwanmayra advised that her mom, patient's sister Dottie lives nearby and is supportive. Patient sees Dr. Spears for primary care and obtains medications from [facility]. Patient is employed at [employer] and is normally independent with ADLS. Patient receives dialysis at [facility] at [address]500 and drives himself to these appointments. Patient sometimes uses a cane as needed, but has no other DME. SW will continue to follow for discharge planning needs. IESHA discussed PT/OT orders with Virgie Nurse Practitioner.
[2021-10-24 16:23] VITALS: BP 134/65; PULSE 87; TEMP 98.6
--- NOTE | 2021-10-24 17:09 | NUR ---
PT ADMITTED TO UNIT. ADMISSION INTAKE AND ASSESSMENT COMPLETED. MED REC UPDATED. PT AND FAMILY ORIENTED TO ROOM, ALL QUESTIONS ANSWERED. UPDATED PT ON POC. WILL CONTINUE TO MONITOR.
[2021-10-24 20:32] VITALS: BP 123/73; PULSE 88; TEMP 97.6
[2021-10-25] VITALS (7 sets, daily range): BP systolic 109–146; BP diastolic 53–95; PULSE 84–92; TEMP 97.6–98.9
--- NOTE | 2021-10-25 02:18 | NUR ---
BEGINNING OF SHIFT NOTE: PATIENT RESTED QUIETLY IN BED. PATIENT PLACED ON 2L/NC FOR DESATURATIONS. PATIENT REPORTS PAIN BORDERLINE. PATIENT ASKED TO CLARIFY WITH NUMERIC SCALE AND PATIENT REPORTS PAIN AN 8. PATIENT RESTING WITH EYES CLOSED.
--- NOTE | 2021-10-25 06:12 | NUR ---
END OF SHIFT NOTE: PATIENT RESTED QUIETLY THIS SHIFT. FOUNDRY TENDER SYRINGE CHANGED. PATIENT IV INFILTRATED AND SKIN TEAR RECEIVED WHILE ATTEMPTING TO DISCONTINUE OLD IV. PATIENT SKIN TEAR CLEANED AND DRESSED WITH STERI STRIPS. PATIENT ASKED FOR A DRINK AT THIS TIME AND NOTED TO HAVE LIQUID RUNNING OUT OF MOUTH AND COUGHING. PATIENT COUGHED UP MODERATE AMOUNT OF PHLEGM. PATIENT ALSO NOTED TO HAVE INCREASE IN OXYGEN NEEDS UP TO 3.5 L/NC THROUGHT PATIENT CPAP.
[2021-10-25 06:51] LABS: MEAN CELL VOLUME 112 fl (80.0-100.0); MEAN CORPUSCULAR HGB CONC 32 g/dl (33.0-37.0); MEAN PLATELET VOLUME 9.6 fl (7.4-10.4); PLATELET COUNT 207 K/mm3 (130-400); RED BLOOD COUNT 2.56 M/mm3 (4.20-5.60); REDCELL DISTRIBUTION WIDTH-CV 15.2 % (11.5-14.5)
[2021-10-25 06:54] LABS: HEMATOCRIT 28.7 % (42.0-52.0); HEMOGLOBIN 9.1 g/dl (13.5-18.0); MEAN CORPUSCULAR HEMOGLOBIN 36 pg (27-31)
[2021-10-25 07:01] LABS: ALBUMIN 2.4 gm/dL (3.4-4.8); CALCIUM 8.7 mg/dL (8.4-10.2); CREATININE, serum 6.79 mg/dL (0.72-1.25); PHOSPHOROUS 5.1 mg/dL (2.3-4.7); POTASSIUM 5.7 mmol/L (3.5-4.5)
[2021-10-25 07:18] LABS: BAND 14 % (0-10); EOSINOPHIL 5 % (0-4); LYMPHOCYTE 2 % (20.0-51.0); NEUTROPHILS 77 % (42.0-75.2); PLATELET ESTIMATE NORMAL (NORMAL); TEAR DROP CELLS 1+
--- NOTE | 2021-10-25 11:15 | NUR ---
PT LAYING IN BED. MORNING MEDICATIONS GIVEN. SHIFT ASSESSMENT COMPLETED. PT CARDIOLOGY FELLOW PUMP IN PLACE, PAIN IS BETTER CONTROLLED PER PT REPORT. DENIES ANY NEEDS AT THIS TIME.
--- NOTE | 2021-10-25 12:51 | NUR ---
Initial visit; Patient feeling and appears 'unhappy and grumpy.' His family member tried to soften his remarks to Art Tracer when he spoke. Art Tracer eventually wished him well and offered God's blessings.
--- NOTE | 2021-10-25 13:08 | NUR ---
PT OFF UNIT FOR DIALYSIS
--- NOTE | 2021-10-25 14:53 | NUR ---
SW asked the RN for PT/OT orders.
[2021-10-26 03:39] VITALS: BP 160/68; PULSE 83; TEMP 98
[2021-10-26 07:05] LABS: MEAN CELL VOLUME 110 fl (80.0-100.0); MEAN CORPUSCULAR HGB CONC 32 g/dl (33.0-37.0); MEAN PLATELET VOLUME 9.5 fl (7.4-10.4); PLATELET COUNT 181 K/mm3 (130-400); RED BLOOD COUNT 2.49 M/mm3 (4.20-5.60); REDCELL DISTRIBUTION WIDTH-CV 15.3 % (11.5-14.5)
[2021-10-26 07:06] LABS: HEMATOCRIT 27.5 % (42.0-52.0); HEMOGLOBIN 8.8 g/dl (13.5-18.0); MEAN CORPUSCULAR HEMOGLOBIN 35 pg (27-31)
[2021-10-26 07:17] LABS: BAND 12 % (0-10); EOSINOPHIL 2 % (0-4); LYMPHOCYTE 1 % (20.0-51.0); NEUTROPHILS 82 % (42.0-75.2); PLATELET ESTIMATE NORMAL (NORMAL)
[2021-10-26 07:18] LABS: ALBUMIN 2.2 gm/dL (3.4-4.8); CALCIUM 8.7 mg/dL (8.4-10.2); PHOSPHOROUS 4.9 mg/dL (2.3-4.7); POTASSIUM 5.2 mmol/L (3.5-4.5)
[2021-10-26 07:43] VITALS: BP 103/35; PULSE 87; TEMP 98.3
--- NOTE | 2021-10-26 08:00 | NUR ---
Patient resting in bed, easiliy awakened with verbal command. Drowsy and complaints of pain. FUR COMBER in place. A&Ox4. VSS. IV CDI, fluids infusing. Family at the bedside assisting with cares. Call light within reach
[2021-10-26 11:47] VITALS: BP 101/47; PULSE 87; TEMP 97.8
[2021-10-26 16:00] VITALS: BP 115/41; PULSE 85; TEMP 97.8
--- NOTE | 2021-10-26 16:23 | NUR ---
PT/OT are recommending that they will continue to monitor, but that the patient may require SNF. IESHA met with the patient and his sister, Dottie, to discuss their recommendation. Dottie states that she believes the patient would benefit from rehab and they are agreeable to rehab. SW presented them with Medicare.gov's list of SNFs in the [facility] and informed them of [facility]. Dottie states that she is leaning towards [facility] and [facility], but would like to talk to a friend/family first, before making final decision on preference for facility. IESHA consulted IPR Director, Clara. IESHA contacted and faxed a referral to Kristin at [facility]. Awaiting screens. *Discharge plan: post-acute rehab. Referrals out*
--- NOTE | 2021-10-26 16:55 | NUR ---
The patient's sister, Dottie, left SW a voicemail. She confirmed they prefer 1) [facility] 2) [facility].
--- NOTE | 2021-10-26 17:57 | NUR ---
Patient sitting up in bed, family assisting with feeds. Patient more awake and alert, states that he is feeling better. Family states that he looks better and is more awake. A&Ox3 with intermittent confusion. Nursing staff and family reorienting as needed. MOHEL in place. Call light within reach. Bed alarm on
--- NOTE | 2021-10-26 19:00 | NUR ---
THE PATIENT IS ALERT AND TALKING WITH THIS NURSE. HE REMAINS ON A STREETS AND BUILDINGS DECORATOR. THE PATIENT IS NOT CONFUSED REPORTED FROM DAYS BEFORE. ASSESSMENT COMPLETED. THE PATIENT'S VITALS SIGNS ARE STABLE, PRESSURES ARE MINIMALLY SOFT D/T STREETS AND BUILDINGS DECORATOR THAT WAS REDUCED PER REPORT FROM DAY SHIFT. WILL CONTINUE TO MONITOR THE PATIENT. NO OTHER CONCERNS AT THIS TIME.
[2021-10-26 19:43] VITALS: BP 92/41; PULSE 83; TEMP 98.5
[2021-10-26 23:53] VITALS: BP 102/40; PULSE 86; TEMP 97.9
[2021-10-27] VITALS (478 sets, daily range): BP systolic 82–142; BP diastolic 39–76; PULSE 61–73; TEMP 96.2–98.1; O2SAT 86–100
--- NOTE | 2021-10-27 06:50 | NUR ---
THE PATIENT HAD AN UNEVENTFUL NIGHT. DURING NIGHT THE PATIENT HAD SOME COMPLAINTS OF PAIN FOR WHICH HE REMAINS ON THE ACCOUNTING FILE CLERK. OTHER THAN SWELLING IN HIS ARMS, AND SOME REDNESS IN BILATERAL UPPER EXTREMETIES. HAND OFF REPORT TO BAKARI SAVAGE. NO OTHER CONCERNS.
[2021-10-27 07:05] LABS: MEAN CELL VOLUME 111 fl (80.0-100.0); MEAN CORPUSCULAR HGB CONC 31 g/dl (33.0-37.0); MEAN PLATELET VOLUME 9.7 fl (7.4-10.4); PLATELET COUNT 173 K/mm3 (130-400); RED BLOOD COUNT 2.45 M/mm3 (4.20-5.60); REDCELL DISTRIBUTION WIDTH-CV 15.2 % (11.5-14.5)
[2021-10-27 07:10] LABS: HEMATOCRIT 27.1 % (42.0-52.0); HEMOGLOBIN 8.5 g/dl (13.5-18.0); MEAN CORPUSCULAR HEMOGLOBIN 35 pg (27-31)
[2021-10-27 07:24] LABS: ALBUMIN 2.2 gm/dL (3.4-4.8); CALCIUM 8.8 mg/dL (8.4-10.2); CREATININE, serum 7.56 mg/dL (0.72-1.25); PHOSPHOROUS 5.2 mg/dL (2.3-4.7); POTASSIUM 5.2 mmol/L (3.5-4.5)
[2021-10-27 07:32] LABS: BAND 9 % (0-10); EOSINOPHIL 5 % (0-4); LYMPHOCYTE 3 % (20.0-51.0); NEUTROPHILS 80 % (42.0-75.2); PLATELET ESTIMATE NORMAL (NORMAL)
--- NOTE | 2021-10-27 08:00 | NUR ---
Patient sitting up in bed, cpap on. Patient easiliy awakened with verbal command. Alert, but drowsy and falling back to sleep. VSS. IV CDI, fluids infusing. ASSURANCE AUDITOR in place, VS and RR monitored. ASSURANCE AUDITOR button in hand. Niece at the bedside. No further needs expressed. Call light within reach. Bed alarm on
--- NOTE | 2021-10-27 12:25 | NUR ---
pATIENT TO DIALYSIS IN BED
[2021-10-27 13:52] LABS: INR 1.2 (0.8-3.0)
[2021-10-27 13:55] LABS: PARTIAL THROMBOPLASTIN TIME 61.7 SECONDS (26.0-37.0)
[2021-10-27 14:03] LABS: ALBUMIN 1.9 gm/dL (3.4-4.8); BILIRUBIN,TOTAL 0.5 mg/dL (0.2-1.2); C-REACTIVE PROTEIN 24.51 mg/dL (0.00-0.50); CALCIUM 8.2 mg/dL (8.4-10.2); CREATININE, serum 7.15 mg/dL (0.72-1.25); POTASSIUM 4.6 mmol/L (3.5-4.5); TOTAL PROTEIN 4.8 gm/dL (6.2-8.1)
[2021-10-27 14:08] LABS: TROPONIN-I 0.014 ng/mL (0.00-0.033)
--- NOTE | 2021-10-27 14:30 | NUR ---
DR. TOMLINSON WAS CALLED AT [address] A CENTRAL LINE; TIME OUT WAS PERFORMED AT 1412 AND THE PROCEDURE STARTED AT 1415. PATIENT TOLERATED THE PROCEDURE WELL.
[2021-10-27 14:35] LABS: ARTERIAL BLD GAS O2 SATURATION 99.4 % (92-100); ARTERIAL BLD GAS TCO2 CT 23.8; ARTERIAL BLOOD GAS BASE EXCESS -3.1 (-2-2); ARTERIAL BLOOD GAS HCO3 22.5 meq/L (22-26); ARTERIAL BLOOD GAS PCO2 42.5 mmHg (35-45); ARTERIAL BLOOD GAS PO2 127.7 mmHg (80-100); ARTERIAL BLOOD GAS pH 7.34 (7.35-7.45)
--- NOTE | 2021-10-27 15:00 | NUR ---
PATIENT ARRIVED ON THE UNIT AT APPROX 1330 AFTER A CODE WHILE RECEIVING DIALYSIS. PATIENT WAS HYPOTENSIVE UPON ARRIVAL WITH OTHER VITAL SIGNS REMAINING WITHIN NORMAL LIMITS. PATIENT HAD NO COMPLAINTS OF PAIN UPON ARRIVAL.
[2021-10-27 19:50] LABS: ARTERIAL BLOOD GAS BASE EXCESS -4.5 (-2-2); ARTERIAL BLOOD GAS HCO3 21.6 meq/L (22-26); ARTERIAL BLOOD GAS PCO2 44.4 mmHg (35-45); ARTERIAL BLOOD GAS PO2 68.7 mmHg (80-100); ARTERIAL BLOOD GAS pH 7.31 (7.35-7.45)
[2021-10-28] VITALS (972 sets, daily range): BP systolic 80–129; BP diastolic 26–77; PULSE 65–80; TEMP 97.5–98; O2SAT 51–100
[2021-10-28 05:13] LABS: MEAN CELL VOLUME 110 fl (80.0-100.0); MEAN CORPUSCULAR HGB CONC 32 g/dl (33.0-37.0); MEAN PLATELET VOLUME 9.9 fl (7.4-10.4); PLATELET COUNT 155 K/mm3 (130-400); RED BLOOD COUNT 2.38 M/mm3 (4.20-5.60); REDCELL DISTRIBUTION WIDTH-CV 15.1 % (11.5-14.5)
[2021-10-28 05:23] LABS: HEMATOCRIT 26.1 % (42.0-52.0); HEMOGLOBIN 8.3 g/dl (13.5-18.0); MEAN CORPUSCULAR HEMOGLOBIN 35 pg (27-31)
[2021-10-28 05:33] LABS: CALCIUM 8.5 mg/dL (8.4-10.2); CREATININE, serum 8.16 mg/dL (0.72-1.25)
[2021-10-28 05:35] LABS: POTASSIUM 6.5 mmol/L (3.5-4.5)
[2021-10-28 05:52] LABS: BAND 4 % (0-10); LYMPHOCYTE 5 % (20.0-51.0); NEUTROPHILS 90 % (42.0-75.2); PLATELET ESTIMATE NORMAL (NORMAL)
--- NOTE | 2021-10-28 09:47 | NUR ---
REPORT RECEIVED FROM BAKARI THOMAS; PATIENT CURRENTLY RESTING IN BED AND IS STILL ON LEVO RUNNING THROUGH HIS CENTRAL LINE AND WEARING BIPAP ON AT 40% FIO2. VITAL SIGNS HAVE REMAINED WITHIN NORMAL LIMITS.
[2021-10-28 13:02] LABS: CALCIUM 8.3 mg/dL (8.4-10.2); CREATININE, serum 3.77 mg/dL (0.72-1.25); MAGNESIUM 2.1 mg/dL (1.6-2.6)
--- NOTE | 2021-10-28 20:00 | NUR ---
SHIFT REPORT RECEIVED. PT A&O X4. SKIN ASSESSMENT: PT WITH MULTIPLE SKIN TEARS BUE, RT FOREARM WITH DEEP SKIN TEAR, BUE WHEEPY, COCCYX RED BLANCHABLE, CHEST RED BLANCHABLE, BL HEELS BOGGY WITH SKIN INTACT. ABD ROUND FIRM DISTENDED WITH HYPOACTIVE BOWEL SOUNDS. WEAK BL HAND DISC PAD KNOCKOUT WORKER BUT EQUAL. UNABLE TO MOVE LRE, SLIGHT MOVEMENT IN LLE. EQUAL FEELING/SENSATIONS IN BLE. ORAL MEDS HELD, PT HAVING DIFFICULITY SWALLOWING, DAY SHIFT STATED PROVIDER WAS NOTIFIED. PT HAD SML BOWEL MOVEMENT, LIGHT SCHULTE AND SOFT.
[2021-10-29] VITALS (1418 sets, daily range): BP systolic 112–157; BP diastolic 63–76; PULSE 66–75; TEMP 97.1–97.7; O2SAT 62–100
--- NOTE | 2021-10-29 03:29 | NUR ---
SPOKE WITH [facility] REGARDING ZOSYN DOSAGE AND RATE. PHARMACIST ADJUSTED DOSAGE AND RATE BASED OFF PT'S RENAL STATUS.
[2021-10-29 05:39] LABS: ARTERIAL BLD GAS O2 SATURATION 99.3 % (92-100); ARTERIAL BLD GAS TCO2 CT 30.3; ARTERIAL BLOOD GAS BASE EXCESS 4.6 (-2-2); ARTERIAL BLOOD GAS PCO2 42.4 mmHg (35-45); ARTERIAL BLOOD GAS pH 7.45 (7.35-7.45)
[2021-10-29 05:40] LABS: ARTERIAL BLOOD GAS PO2 122.9 mmHg (80-100)
[2021-10-29 05:58] LABS: MEAN CORPUSCULAR HGB CONC 33 g/dl (33.0-37.0); MEAN PLATELET VOLUME 10.1 fl (7.4-10.4); PLATELET COUNT 169 K/mm3 (130-400); RED BLOOD COUNT 2.44 M/mm3 (4.20-5.60); REDCELL DISTRIBUTION WIDTH-CV 14.6 % (11.5-14.5)
[2021-10-29 06:02] LABS: HEMATOCRIT 25.5 % (42.0-52.0); HEMOGLOBIN 8.4 g/dl (13.5-18.0); MEAN CELL VOLUME 106 fl (80.0-100.0); MEAN CORPUSCULAR HEMOGLOBIN 34 pg (27-31)
[2021-10-29 06:17] LABS: ALBUMIN 1.9 gm/dL (3.4-4.8); CREATININE, serum 5.3 mg/dL (0.72-1.25); MAGNESIUM 2.2 mg/dL (1.6-2.6); PHOSPHOROUS 5.8 mg/dL (2.3-4.7); POTASSIUM 3.7 mmol/L (3.5-4.5)
--- NOTE | 2021-10-29 06:52 | NUR ---
END OF SHIFT NOTE: PT HAD TWO SMALL BM. SCHULTE IN COLOR, SOFT UNFORMED. PT HAD NOT VOIDED, PT STATES HE DOES NOT REGURALY MAKE URINE. PT WITH MULTIPLE BUE SKIN TEARS WITH DRESSINGS CHANGED THIS NIGHT. PT RESTED BETWEEN DISTURBANCES DURING NIGHT.
[2021-10-29 06:57] LABS: BAND 2 % (0-10); LYMPHOCYTE 8 % (20.0-51.0); NEUTROPHILS 88 % (42.0-75.2)
[2021-10-29 06:58] LABS: PLATELET ESTIMATE NORMAL (NORMAL)
--- NOTE | 2021-10-29 07:48 | NUR ---
report hand off given to kyara nolan
--- NOTE | 2021-10-29 08:10 | NUR ---
Shift assessment completed; Bipap removed and placed on 4L nc. 02 remaining at 100% on NC. Denies any shortness of breath or pain at this time. Can lift upper extremities off of the bed but cannot hold them up for more than 3 seconds. Able to wiggle toes on bilateral feet but unable to lift legs off of the bed. Patient is alert and oriented although slighlty drowsy. Responses to orientation questions are correct although thought procecss is slightly delayed. Family at bedside; will continue to monitor.
--- NOTE | 2021-10-29 09:07 | NUR ---
Kristin with [facility] called stating that they are willing to follow the patient and request updates. Clinical updates faxed to [facility].
--- NOTE | 2021-10-29 11:05 | NUR ---
shift commander RN reported that patient coughed and "choked" on water, therefore evening meds were placed on hold. Discussed with Dr. Tellez as unable to give am meds. Will consult with speech therapy. Therapist notified and awaiting an evaluation.
--- NOTE | 2021-10-29 18:00 | NUR ---
Assisted with eating dinner and ate 100% of his meal. Patient had no issues with swallowing his mechanical soft diet or thin liquids.
--- NOTE | 2021-10-29 20:00 | NUR ---
SHIFT REPORT RECEIVED. PT WITH BUE SKIN TEARS AND WHEEPING WITH GENERALIZED RUDDINESS AND ECCHYMOSIS. DRESSINGS ON BUE WOUNDS CHANGED. PT MENTATION IMPROVED FROM PREVIOUS SHIFT.
[2021-10-30] VITALS (547 sets, daily range): BP systolic 91–126; BP diastolic 37–82; PULSE 66–80; TEMP 97.6–99; O2SAT 80–100
[2021-10-30 05:49] LABS: MEAN CELL VOLUME 107 fl (80.0-100.0); MEAN CORPUSCULAR HGB CONC 33 g/dl (33.0-37.0); MEAN PLATELET VOLUME 10.2 fl (7.4-10.4); PLATELET COUNT 157 K/mm3 (130-400); REDCELL DISTRIBUTION WIDTH-CV 14.4 % (11.5-14.5)
--- NOTE | 2021-10-30 05:57 | NUR ---
PT WORN BIPAP DURING SLEEP. REPORTED SLEPT WELL. UNEVENTFUL NIGHT. BED BATH PROVIDED AND WOUND DERSSINGS CHANGED.
[2021-10-30 06:12] LABS: HEMATOCRIT 24.6 % (42.0-52.0); HEMOGLOBIN 8.1 g/dl (13.5-18.0); MEAN CORPUSCULAR HEMOGLOBIN 35 pg (27-31)
[2021-10-30 07:07] LABS: BAND 7 % (0-10); LYMPHOCYTE 10 % (20.0-51.0); METAMYELOCYTE 2 % (0-0); NEUTROPHILS 74 % (42.0-75.2); PLATELET ESTIMATE NORMAL (NORMAL)
--- NOTE | 2021-10-30 07:09 | NUR ---
HAND OFF REPORT GIVEN TO MIESHA VILLEGAS
[2021-10-30 08:32] LABS: CALCIUM 8.1 mg/dL (8.4-10.2); CREATININE, serum 6.34 mg/dL (0.72-1.25); POTASSIUM 3.8 mmol/L (3.5-4.5)
--- NOTE | 2021-10-30 09:50 | NUR ---
RECEIVED REPORT FROM BAKARI SPENCE AND ABKARI MAGAÑA; PATIENT CURRENTLY RESTING COMFORTABLY IN BED; PATIENT WILL GO TO DIALYSIS THIS MORNING AND THEN TRANSFER TO ROOM 316 POST-DIALYSIS. PATIENT IS RECEIVING TPN WHICH IS RUNNING AT 30 ML/HR AND ZOSYN WHICH IS RUNNING AT 25 ML/HR. VITAL SIGNS ARE ALL WITHIN NORMAL LIMITS THIS MORNING.
--- NOTE | 2021-10-30 18:31 | NUR ---
Patient returned from Dialysis around 1430. Patient had no complaints of pain. Resting in bed, upright with family at bedside. Multiple skin tears on arms, with weeping. Patient alert, oriented, resting comfortably. IV antibiotics, TPN and lipids running. Patient Central line flushes and draws with no concerns. Patient on 1600ml/Fr. Patient ate full meal at lunch, however, needs to be full assist with meals. Mechanical soft, thin liquids, no straws. No other concerns at this time.
--- NOTE | 2021-10-30 19:59 | NUR ---
BEGINNING OF SHIFT NOTE: PATIENT RESTING QUIETLY IN BED. PATIENT REQUESTS TYLENOL WITH HS MEDICATIONS. PATIENT PLEASANT AND COOPERATIVE AND ATE 100% OF SUPPER WITH ASSIST. RT AT BEDSIDE
[2021-10-31] VITALS (7 sets, daily range): BP systolic 101–1041; BP diastolic 40–61; PULSE 73–85; TEMP 97.8–99
--- NOTE | 2021-10-31 06:24 | NUR ---
END OF SHIFT: PATIENT PLACED ON 2L/NC FOR DECREASED OXYGEN SATS. PATIENT GIVEN PRN TYLENOL PER HIS REQUEST. PATIENT DENIED NEEDS AND TOLERATED TPN AND LIPIDS WELL. LIPIDS INTAKE 141, TPN 341 AND ZOSYN 24 MLS.
[2021-10-31 06:53] LABS: MAGNESIUM 2.2 mg/dL (1.6-2.6)
[2021-10-31 06:57] LABS: MEAN CELL VOLUME 109 fl (80.0-100.0); MEAN CORPUSCULAR HGB CONC 32 g/dl (33.0-37.0); MEAN PLATELET VOLUME 10.3 fl (7.4-10.4); PLATELET COUNT 195 K/mm3 (130-400); RED BLOOD COUNT 2.14 M/mm3 (4.20-5.60); REDCELL DISTRIBUTION WIDTH-CV 14.3 % (11.5-14.5)
[2021-10-31 06:59] LABS: HEMATOCRIT 23.4 % (42.0-52.0); HEMOGLOBIN 7.5 g/dl (13.5-18.0); MEAN CORPUSCULAR HEMOGLOBIN 35 pg (27-31)
[2021-10-31 08:21] LABS: BAND 6 % (0-10); LYMPHOCYTE 12 % (20.0-51.0); METAMYELOCYTE 1 % (0-0); MYELOCYTE 1 % (0-0); NEUTROPHILS 75 % (42.0-75.2)
[2021-10-31 08:22] LABS: PLATELET ESTIMATE NORMAL (NORMAL)
--- NOTE | 2021-10-31 09:48 | NUR ---
PT SITTING UP IN BED, FAMILY AT BEDSIDE. MORNING MEDICATIONS GIVEN. SHIFT ASSESSMENT COMPLETED. PT REPORTS MILD PAIN TO BACK AND SHOULDERS, TYLENOL GIVEN PER REQUEST. PT TASHIAE JUAN RAMON. CURRENTLY ON 2L VIA OK. DENIES ANY NEEDS AT THIS TIME. WILL CONTINUE TO MONITOR.
--- NOTE | 2021-10-31 13:39 | NUR ---
Manager Nuclear contacted Kristin at [facility] and faxed clinical updates. IESHA advised that per Dr. Olvera, patient will tentatively be ready for discharge Friday. IESHA also advised that per RN, patient will be done with TPN this afternoon. Kristin advised they should be able to accept if patient is nutritionally stable at time of discharge. Kristin advised she will contact family today. Discharge Plan: [facility]
--- NOTE | 2021-11-01 00:59 | NUR ---
PATIENT RESTING IN BED WATCHING TELEVISON. PATIENT REQUESTS REPOSITIONING AND IS REPOSITIONED AT THIS TIME. PATIENT STATES HE IS MORE COMFORTABLE NOW AND ABLE TO SEE TELEVISION BETTER. PATIENT DENIES PAIN, FUTHER CONCERNS OR ISSUES. CALL LIGHT IS WITHIN REACH OF PATIENT.
--- NOTE | 2021-11-01 02:41 | NUR ---
PATIENT TPN COMPLETED AT THIS TIME.
[2021-11-01 04:23] VITALS: BP 134/54; PULSE 66; TEMP 97.7
--- NOTE | 2021-11-01 05:29 | NUR ---
PATIENT RESTING IN BED WITH EYES CLOSED AND BI-PAP ON. PATIENT HAS HAD AN UNEVENTFUL NIGHT. CENTRAL LINE DRESSING WAS CHANGED DUE TO DRAINAGE AND TRASNPARENT DRESSING NOT ATTACHED TO PATIENT. PATIENT HAS SHOWN NO SIGNS OF PAIN OR DISTRESS THIS SHIFT. CALL LIGHT IS WITHIN PATIENT REACH.
[2021-11-01 05:49] LABS: MEAN CELL VOLUME 108 fl (80.0-100.0); MEAN CORPUSCULAR HGB CONC 32 g/dl (33.0-37.0); MEAN PLATELET VOLUME 9.7 fl (7.4-10.4); PLATELET COUNT 190 K/mm3 (130-400); RED BLOOD COUNT 2.13 M/mm3 (4.20-5.60); REDCELL DISTRIBUTION WIDTH-CV 13.6 % (11.5-14.5)
[2021-11-01 05:51] LABS: HEMOGLOBIN 7.4 g/dl (13.5-18.0); MEAN CORPUSCULAR HEMOGLOBIN 35 pg (27-31)
[2021-11-01 06:07] LABS: LYMPHOCYTE 15 % (20.0-51.0); METAMYELOCYTE 1 % (0-0); MICROCYTOSIS 2+; NEUTROPHILS 79 % (42.0-75.2); PLATELET ESTIMATE NORMAL (NORMAL)
[2021-11-01 06:08] LABS: SCHISTOCYTES 1+
[2021-11-01 08:03] VITALS: BP 107/58; BP 107/580; PULSE 69; TEMP 98
--- NOTE | 2021-11-01 08:45 | NUR ---
PT SITTING UP IN BED, FAMILY AT BEDSIDE. PO MORNING MEDICATIONS HELD FOR PROCEDURE. PT AND FAMILY UPDATED ON POC. PT REPORTS MILD PAIN TO BACK AND SHOULDERS. DENIES ANY NEEDS AT THIS TIME. WILL CONTINUE TO MONITOR.
--- NOTE | 2021-11-01 09:51 | NUR ---
PT OFF UNIT FOR PROCEDURE AT THIS TIME.
--- NOTE | 2021-11-01 10:44 | NUR ---
REPORT RECEIVED FROM NEFTALY ROMO FOLLOWING PROCEDURE. PLAN IS TO BRING PT STRAIGHT TO DIALYSIS.
--- NOTE | 2021-11-01 15:11 | NUR ---
VERBAL ORDER FROM DR. YE TO D/C CENTRAL LINE, NO IV PLACEMENT REQUIRED PER HIS ORDERS.
--- NOTE | 2021-11-01 15:27 | NUR ---
Message left for Campbell at [facility] that the patient will be ready for discharge tomrrow.
[2021-11-01 16:00] VITALS: BP 118/55; PULSE 65; TEMP 97.8
--- NOTE | 2021-11-01 18:11 | NUR ---
DRESSING CHANGED TO BUE. R FOREARM SKIN TEAR HAS MEPLEX IN PLACE. L FOREARM DRESSING HAS OIL GAUZE, NON ADHERENT PAD, AND WRAPPED IN KERLEX. SKIN TEAR TO R HAND LEFT OPEN TO AIR, APPEARS DRY AND SCABBED OVER AT THIS TIME.
--- NOTE | 2021-11-01 18:30 | NUR ---
PT LAYING IN BED DURING BEDSIDE SHIFT REPORT. THE PATIENT WANTED TO BE READJUSTED IN BED. THIS RN AND THE PCT PLACED A PILLOW BENEATH THE PATIENT'S BOTTOM PER REQUEST OF THE PATIENT. THE PATIENT CURRENTLY HAS NO IV AT THIS TIME AND THERE ARE ORDERS FOR NO REPLACEMENT OF THE IV. IV ABX WILL BE DOSED DURING DIALYSIS. NO OTHER CONCERNS.
[2021-11-01 21:17] VITALS: BP 122/53; PULSE 79; TEMP 98.4
[2021-11-01 23:22] VITALS: BP 112/49; PULSE 76; TEMP 99.1
[2021-11-02 04:55] VITALS: BP 110/60; PULSE 78; TEMP 98
[2021-11-02 06:12] LABS: MEAN CELL VOLUME 108 fl (80.0-100.0); MEAN CORPUSCULAR HGB CONC 32 g/dl (33.0-37.0); MEAN PLATELET VOLUME 10.1 fl (7.4-10.4); PLATELET COUNT 251 K/mm3 (130-400); RED BLOOD COUNT 2.39 M/mm3 (4.20-5.60); REDCELL DISTRIBUTION WIDTH-CV 13.3 % (11.5-14.5)
[2021-11-02 06:19] LABS: HEMATOCRIT 25.8 % (42.0-52.0); HEMOGLOBIN 8.2 g/dl (13.5-18.0); MEAN CORPUSCULAR HEMOGLOBIN 34 pg (27-31)
[2021-11-02 06:30] LABS: MAGNESIUM 2.4 mg/dL (1.6-2.6); PHOSPHOROUS 6.1 mg/dL (2.3-4.7)
[2021-11-02 07:05] LABS: BAND 5 % (0-10); LYMPHOCYTE 19 % (20.0-51.0); METAMYELOCYTE 5 % (0-0); NEUTROPHILS 62 % (42.0-75.2); PLATELET ESTIMATE NORMAL (NORMAL)
--- NOTE | 2021-11-02 07:09 | NUR ---
REPORT GIVEN TO BAKARI KHAN. THE PATIENT REMAINS BED BOUND. NO OTHER CONCERNS, TRANSFER OF CARE COMPELTE.
[2021-11-02 07:41] VITALS: BP 115/46; PULSE 82; TEMP 98.8
--- NOTE | 2021-11-02 08:52 | NUR ---
PT SITTING UP IN BED. MORNING MEDICATIONS GIVEN. SHIFT ASSESSMENT COMPLETED. PT HAS NO IV ACCESS AT THIS TIME. PT REPORTS PAIN TO HIS SHOULDERS, TYLENOL GIVEN PER eMAR. WEEPING NOTED TO BUE. PT DENIES ANY OTHER NEEDS AT THIS TIME. WILL CONTINUE TO MONITOR.
[2021-11-02] MEDS ORDERED: CEFAZOLIN1 G1 IV (10:46)
[2021-11-02] MEDS ORDERED: TYLENOL 500MG500 MG PO (10:47)
[2021-11-02] MEDS ORDERED: COREG 3.123.125 MG/T PO (10:48)
[2021-11-02 11:25] VITALS: BP 117/40; PULSE 84; TEMP 97.5
--- NOTE | 2021-11-02 12:35 | NUR ---
Clinical updates and discharge orders faxed to Erica at [facility]. SW collaborated with physician to make sure the patient has his Ancef 3grams for dialysis on Friday. Transportation arranged for the facility to pick the patient up at 1400.
--- NOTE | 2021-11-02 12:54 | NUR ---
Patient's [facility] contacted and provided update on patients discharge plan/time.
--- NOTE | 2021-11-02 14:05 | NUR ---
REPORT CALLED TO RN AT [facility], ALL QUESTIONS ANSWERED. PT DRESSED AND READY FOR D/C. PERSONAL BELONGINGS PACKED. WAITING ON [facility] TRANSPORTATION TO ARRIVE.
== END 2021-11-02 15:25 | DRG 871 ==
LOC: COL.ER 19:38 → MEDICAL 22:47 → ICU 10-27 13:38 → MEDICAL 10-30 11:56
PROVIDERS: Emergency Medicine; Internal Medicine Pulmonary Disease; ADMIT Internal Medicine Nephrology
PROC: 5A1D70Z Performance of Urinary Filtration, Intermittent, Less than 6 Hours Per Day (ICD-10-PCS; 2021-10-25)
PROC: 05HM33Z Insertion of Infusion Device into Right Internal Jugular Vein, Percutaneous Approach (ICD-10-PCS; principal; 2021-10-27)
PROC: 3E0436Z Introduction of Nutritional Substance into Central Vein, Percutaneous Approach (ICD-10-PCS; 2021-10-28)
DX: A41.9 Sepsis, unspecified organism (principal); R65.21 Severe sepsis with septic shock; N18.6 End stage renal disease; G93.41 Metabolic encephalopathy; J96.02 Acute respiratory failure with hypercapnia; D84.9 Immunodeficiency, unspecified; I12.0 Hypertensive chronic kidney disease with stage 5 chronic kidney disease or end stage renal disease; E27.40 Unspecified adrenocortical insufficiency; E46 Unspecified protein-calorie malnutrition; N39.0 Urinary tract infection, site not specified; E87.2 Acidosis; T86.12 Kidney transplant failure; Z66 Do not resuscitate; M41.84 Other forms of scoliosis, thoracic region; M81.0 Age-related osteoporosis without current pathological fracture; E78.5 Hyperlipidemia, unspecified; I48.91 Unspecified atrial fibrillation; G47.33 Obstructive sleep apnea (adult) (pediatric); D72.829 Elevated white blood cell count, unspecified; I16.0 Hypertensive urgency; M79.10 Myalgia, unspecified site; B95.61 Methicillin susceptible Staphylococcus aureus infection as the cause of diseases classified elsewhere; E87.70 Fluid overload, unspecified; D63.1 Anemia in chronic kidney disease; Z20.822 Contact with and (suspected) exposure to COVID-19; E11.22 Type 2 diabetes mellitus with diabetic chronic kidney disease; I27.20 Pulmonary hypertension, unspecified; E87.5 Hyperkalemia; I95.9 Hypotension, unspecified; B95.4 Other streptococcus as the cause of diseases classified elsewhere; Z86.718 Personal history of other venous thrombosis and embolism; Z91.048 Other nonmedicinal substance allergy status; Z99.2 Dependence on renal dialysis; Z79.01 Long term (current) use of anticoagulants; Z79.52 Long term (current) use of systemic steroids; Z23 Encounter for immunization; Z68.22 Body mass index [BMI] 22.0-22.9, adult
CPT/HCPCS: OP; G0378; J0690; J0696; J1170; J1644; J1815; J1940; J2543; J2704; J2920; J3010; J3370; J7030; J7050; J7070; J7512; J7515; Q9967